=== PATIENT | male | born 1950 | race Caucasian/White ===

== ENCOUNTER → 2023-11-28 14:25 | Outpatient (REF) | payer MEDICARE, SELFPAY ==
[2023-11-28 14:37] LABS: % Basophils 0.4 % (0-2); % Eosinophils 4.9 % (0-6); % Immature Granulocytes 0.8 % (0-0.5); % Lymphocytes 38.5 % (20.5-51.1); % Monocytes 7.5 % (1.7-9.3); % Neutrophils 47.9 % (42.2-75.2); Absolute Basophils 0.1 10^3/uL (0-0.2); Absolute Eosinophils 0.6 10^3/uL (0-0.7); Absolute Immature Granulocytes 0.1 10^3/uL (0-0.05); Absolute Lymphocytes 4.7 10^3/uL (1.2-3.4); Absolute Monocytes 0.9 10^3/uL (0.1-0.6); Absolute Neutrophils 5.8 10^3/uL (1.4-6.5); Hematocrit 35.3 % (39.0-52.0); Hemoglobin 11.9 g/dL (13.0-18.0); Mean Corp Hgb Conc. 33.7 g/dL (33.0-37.0); Mean Corpuscular Hgb 30.6 pg (27.0-31.0); Mean Corpuscular Volume 90.7 fL (80.0-94.0); Mean Platelet Volume 8.7 fL (7.4-10.4); Platelet Count 462 10^3/uL (130-400); Red Blood Cell Count 3.89 10^6/uL (4.70-6.10); Red Cell Dist. Width 12.8 % (11.5-14.5); White Blood Cell Count 12.1 10^3/uL (4.8-10.8)
[2023-11-28 15:26] LABS: ALT (SGPT) 40 U/L (0-50); AST (SGOT) 24 U/L (17-59); Alkaline Phosphatase 153 U/L (38-126); Blood Urea Nitrogen 37 mg/dl (9-20); Calcium 9.3 mg/dl (8.4-10.2); Carbon Dioxide 20 mmol/L (22-30); Chloride 105 mmol/L (98-107); Glucose 95 mg/dl (70-99); Potassium 4.6 mmol/L (3.5-5.1); Sodium 134 mmol/L (135-145); Total Bilirubin 0.4 mg/dl (0.2-1.3); Total Protein 6.8 g/dl (6.3-8.2); eGFR 34.59
[2023-11-28 15:56] LABS: CEA 1.18 ng/ml
[2023-11-28 15:58] LABS: PSA, Total - Diagnostic 0.52 ng/ml (0.0-4.0)
== END ==
LOC: OIDL 14:25
PROVIDERS: ATTENDING PHYSICIAN Internal Medicine Hematology & Oncology
DX: C18.7 Malignant neoplasm of sigmoid colon (principal); R91.1 Solitary pulmonary nodule; N17.9 Acute kidney failure, unspecified; C79.51 Secondary malignant neoplasm of bone
CPT/HCPCS: 80053; 82378; 84153; 85025

== ENCOUNTER → 2023-12-17 14:41 | Outpatient (REF) | payer MEDICARE, SELFPAY ==
[2023-12-17 14:59] LABS: % Basophils 0.5 % (0-2); % Eosinophils 5.6 % (0-6); % Immature Granulocytes 0.3 % (0-0.5); % Monocytes 6.4 % (1.7-9.3); % Neutrophils 53.2 % (42.2-75.2); Absolute Basophils 0.1 10^3/uL (0-0.2); Absolute Eosinophils 0.7 10^3/uL (0-0.7); Absolute Lymphocytes 4.2 10^3/uL (1.2-3.4); Absolute Monocytes 0.8 10^3/uL (0.1-0.6); Absolute Neutrophils 6.5 10^3/uL (1.4-6.5); Hematocrit 32.7 % (39.0-52.0); Hemoglobin 11.3 g/dL (13.0-18.0); Mean Corp Hgb Conc. 34.6 g/dL (33.0-37.0); Mean Corpuscular Hgb 30.1 pg (27.0-31.0); Mean Corpuscular Volume 87.2 fL (80.0-94.0); Mean Platelet Volume 9.4 fL (7.4-10.4); Nucleated Red Blood Cells % 0 % (-); Platelet Count 249 10^3/uL (130-400); Red Blood Cell Count 3.75 10^6/uL (4.70-6.10); Red Cell Dist. Width 13.2 % (11.5-14.5); White Blood Cell Count 12.3 10^3/uL (4.8-10.8)
[2023-12-17 15:12] LABS: ALT (SGPT) 19 U/L (0-50); AST (SGOT) 23 U/L (17-59); Albumin 4.2 g/dl (3.5-5.0); Alkaline Phosphatase 124 U/L (38-126); Blood Urea Nitrogen 39 mg/dl (9-20); Calcium 9.4 mg/dl (8.4-10.2); Carbon Dioxide 19 mmol/L (22-30); Chloride 108 mmol/L (98-107); Glucose 133 mg/dl (70-99); Potassium 3.7 mmol/L (3.5-5.1); Sodium 136 mmol/L (135-145); Total Bilirubin 0.4 mg/dl (0.2-1.3); Total Protein 7.2 g/dl (6.3-8.2); eGFR 20.44
== END ==
LOC: OIDL 14:41
PROVIDERS: ATTENDING PHYSICIAN Internal Medicine Hematology & Oncology
DX: C18.7 Malignant neoplasm of sigmoid colon (principal); C79.51 Secondary malignant neoplasm of bone; C61 Malignant neoplasm of prostate
CPT/HCPCS: 80053; 85025

== ENCOUNTER 2024-01-04 06:23 | Day surgery (SDC) | payer MEDICARE, SELFPAY ==
[2024-01-04] VITALS (7 sets, daily range): BP systolic 120–146; BP diastolic 62–76; BMI 24.0
[2024-01-04 08:37] LABS: INR 1.02; PT 13.2 Sec (11.4-14.6)
[2024-01-04 08:38] LABS: APTT 51.7 Sec (23.4-35.0)
[2024-01-04] MEDS: Pyridium 200 MG PO (10:35)
[2024-01-08 23:36] LABS: Stone Analysis Mass 56 mg
== END 2024-01-04 11:15 | disposition home or self-care (01) ==
LOC: SDS 06:23
PROVIDERS: ATTENDING PHYSICIAN Specialist
DX: N20.2 Calculus of kidney with calculus of ureter (principal); N21.0 Calculus in bladder; C61 Malignant neoplasm of prostate; C18.9 Malignant neoplasm of colon, unspecified
CPT/HCPCS: 52356; 74018; 76000; 82365; 85610; 85730; 93005; C2617

== ENCOUNTER → 2024-02-19 07:41 | Outpatient (REF) | payer MEDICARE, SELFPAY | LOC: RAD 07:41 | PROVIDERS: ATTENDING PHYSICIAN Internal Medicine Hematology & Oncology; FAMILY PHYSICIAN Internal Medicine | DX: C18.7 Malignant neoplasm of sigmoid colon (principal); R91.1 Solitary pulmonary nodule; N17.9 Acute kidney failure, unspecified; C79.51 Secondary malignant neoplasm of bone; C61 Malignant neoplasm of prostate; Z85.46 Personal history of malignant neoplasm of prostate | CPT/HCPCS: 71260; 74177; Q9967 ==

== ENCOUNTER → 2024-02-20 15:55 | Outpatient (REF) | payer MEDICARE, SELFPAY ==
[2024-02-20 12:27] LABS: Hematocrit 30.7 % (39.0-52.0); Hemoglobin 10.6 g/dL (13.0-18.0); Mean Corp Hgb Conc. 34.5 g/dL (33.0-37.0); Mean Corpuscular Hgb 31.6 pg (27.0-31.0); Mean Corpuscular Volume 91.6 fL (80.0-94.0); Mean Platelet Volume 9.8 fL (7.4-10.4); Platelet Count 120 10^3/uL (130-400); Red Blood Cell Count 3.35 10^6/uL (4.70-6.10); Red Cell Dist. Width 15.3 % (11.5-14.5); White Blood Cell Count 15.1 10^3/uL (4.8-10.8)
[2024-02-20 12:46] LABS: ALT (SGPT) 21 U/L (0-50); AST (SGOT) 17 U/L (17-59); Albumin 4.1 g/dl (3.5-5.0); Alkaline Phosphatase 181 U/L (38-126); Blood Urea Nitrogen 40 mg/dl (9-20); Calcium 8.9 mg/dl (8.4-10.2); Carbon Dioxide 20 mmol/L (22-30); Chloride 106 mmol/L (98-107); Glucose 100 mg/dl (70-99); Potassium 3.6 mmol/L (3.5-5.1); Sodium 136 mmol/L (135-145); Total Bilirubin 0.5 mg/dl (0.2-1.3); Total Protein 6.4 g/dl (6.3-8.2); eGFR 34.59
[2024-02-20 13:04] LABS: % Basophils 0.2 % (0-2); % Eosinophils 1.2 % (0-6); % Immature Granulocytes 0.7 % (0-0.5); % Lymphocytes 23.1 % (20.5-51.1); % Monocytes 7.1 % (1.7-9.3); % Neutrophils 67.7 % (42.2-75.2); Absolute Eosinophils 0.2 10^3/uL (0-0.7); Absolute Immature Granulocytes 0.1 10^3/uL (0-0.05); Absolute Lymphocytes 3.5 10^3/uL (1.2-3.4); Absolute Monocytes 1.1 10^3/uL (0.1-0.6); Absolute Neutrophils 10.3 10^3/uL (1.4-6.5); Nucleated Red Blood Cells % 0 % (-)
[2024-02-20 13:11] LABS: PSA, Total - Diagnostic 0.28 ng/ml (0.0-4.0)
== END ==
LOC: OIDL 15:55
PROVIDERS: ATTENDING PHYSICIAN Internal Medicine Hematology & Oncology
DX: C18.7 Malignant neoplasm of sigmoid colon (principal); C79.51 Secondary malignant neoplasm of bone
CPT/HCPCS: 80053; 84153; 85025

== ENCOUNTER → 2024-02-29 15:44 | Outpatient (REF) | payer MEDICARE, SELFPAY ==
[2024-02-29 18:08] LABS: ALT (SGPT) 28 U/L (0-50); AST (SGOT) 24 U/L (17-59); Albumin 3.5 g/dl (3.5-5.0); Alkaline Phosphatase 119 U/L (38-126); Blood Urea Nitrogen 66 mg/dl (9-20); Calcium 7.3 mg/dl (8.4-10.2); Carbon Dioxide 20 mmol/L (22-30); Chloride 104 mmol/L (98-107); Glucose 139 mg/dl (70-99); Potassium 2.9 mmol/L (3.5-5.1); Sodium 135 mmol/L (135-145); Total Bilirubin 0.3 mg/dl (0.2-1.3); Total Protein 5.6 g/dl (6.3-8.2); eGFR 27.79
== END ==
LOC: OIDL 15:44
PROVIDERS: ATTENDING PHYSICIAN Internal Medicine Hematology & Oncology
DX: C18.7 Malignant neoplasm of sigmoid colon (principal)
CPT/HCPCS: 80053

== ENCOUNTER → 2024-03-21 15:49 | Outpatient (REF) | payer MEDICARE, SELFPAY ==
[2024-03-21 16:47] LABS: ALT (SGPT) 64 U/L (0-50); AST (SGOT) 34 U/L (17-59); Albumin 4.3 g/dl (3.5-5.0); Alkaline Phosphatase 152 U/L (38-126); Blood Urea Nitrogen 80 mg/dl (9-20); Calcium 8.3 mg/dl (8.4-10.2); Carbon Dioxide 21 mmol/L (22-30); Chloride 90 mmol/L (98-107); Glucose 153 mg/dl (70-99); Iron 137 ug/dl (49-181); Potassium 4.3 mmol/L (3.5-5.1); Sodium 127 mmol/L (135-145); Total Bilirubin 0.7 mg/dl (0.2-1.3); Total Protein 6.4 g/dl (6.3-8.2); eGFR 20.44
[2024-03-21 16:56] LABS: Percent Saturation 35 % (20-50); Total Iron Binding Capacity 383 ug/dl (261-462)
[2024-03-21 17:54] LABS: Folate > 20.0 ng/ml (2.76-20); Vitamin B12 > 1000 pg/ml (239-931)
== END ==
LOC: OIDL 15:49
PROVIDERS: ATTENDING PHYSICIAN Internal Medicine Hematology & Oncology
DX: C18.7 Malignant neoplasm of sigmoid colon (principal); D51.9 Vitamin B12 deficiency anemia, unspecified
CPT/HCPCS: 80053; 82607; 82728; 82746; 83540; 83550

== ENCOUNTER 2024-03-24 19:55 | Inpatient (IN) | payer MEDICARE, SELFPAY ==
[2024-03-24] VITALS (8 sets, daily range): BP systolic 61–158; BP diastolic 40–72; PULSE 102–128; BMI 24.0; BMI 22.2
--- NOTE | 2024-03-24 17:45 | ED.GENMED ---
History of Present Illness
General
Chief Complaint: Dehydration Symptoms
Source: patient and spouse
Exam Limitations: none
Time Seen by Provider: 03/24/24 17:28
Nursing documentation reviewed up to this point in time: agreed with
Travel History
Have you had any contact with someone who has COVID-19?: No
Do you have any symptoms of coronavirus? Fever > 100 degrees, chills, cough, shortness of breath, sore throat, loss of taste or smell, muscle aches, or headache?: No
History of Present Illness
History of Present Illness:
73-year-old male with a past medical history of congestive heart failure, chronic kidney disease, colon cancer status post colectomy with ileostomy (currently on chemotherapy) who presents to the emergency room with his for evaluation of severe
fatigue and generalized weakness. Patient reports this been an ongoing issue in the setting of his chemotherapy; he recently had his fifth round of chemotherapy 2 weeks ago and is scheduled to have his last round this coming Sunday. He follows
with [facility] sees Dr. Berry primarily. He says that they have been giving him outpatient IV fluids twice a week with the chemotherapy to help with his weakness and dehydration. He says that over the past few days to a week despite
outpatient IV fluids he has been increasingly weak. His says that he had 2 syncopal episodes with positional change while trying to transport to and from the hospital for infusions. Symptoms discussed with oncology team who referred to the
emergency room to be assessed. Patient denies any chest pain. Denies any palpitations. Denies any shortness of breath. He does report a reasonable appetite and says that she has been making an effort to have him eat plenty of food. He says
he has been drinking fluids at home�reports that he tries to take at least 50 ounces of Gatorade a day. He does report primarily liquid copious output from ileostomy. No nausea or vomiting. Denies any fever or chills. No other complaints.
Past History
Past History
ED Past Medical History: Other (glaucoma)
Social History
Tobacco: Non-smoker
Alcohol: None
Drug: None
Personal: Single
Living: other (so)
Review of Systems
Review of Systems
All Other Systems: ROS reviewed and negative except as documented in HPI and ROS
Constitutional: Reports fatigue; Denies fever or chills
EENT: Denies sore throat or runny nose
Respiratory: Denies cough or trouble breathing
Cardiac: Reports syncope; Denies chest pain, diaphoresis or palpitations
ABD/GI: Denies abdominal pain or nausea
: Denies flank pain
Musculoskeletal: Denies neck pain or back pain
Neurological: Reports weakness (Generalized); Denies headache
Phy Exam
Physical Exam
Physical Exam:
General: Awake, alert, oriented x3; no acute distress
Head: Normocephalic, atraumatic
Eyes: Conjunctiva normal
Throat: Airway intact, dry mucous membranes
Neck: Trachea midline, supple without meningismus
Lungs: Clear to auscultation bilaterally, no wheezing, rales, rhonchi
Heart: Regular rate and rhythm, no murmurs, gallops, or rubs; right chest wall port
Abd: Soft, non distended, nontender, ileostomy in place with green liquid output in bag
Neuro: Cranial nerves grossly intact, speech fluid
Skin: Dry, no rash
Extremities: No edema in extremities, equal pulses in all extremities
Scores
Heart Failure Risk
Heart Failure Risk Score: Not Applicable
Heart Score for Chest Pain Patients
STEMI patient?: Not applicable
Withdrawal Assessment of Alcohol
Withdrawal Assessment Completed?: Not applicable
Course
Orders/Labs/Results
Orders:
Orders
03/24/24 17:44
0.9% Sodium Chloride 1000 ml [Nss] 1,000 ml IV BOLUS
03/24/24 17:48
Complete Blood Count/With Diff Urgent
Comprehensive Metabolic Panel Urgent
Magnesium Urgent
03/24/24 17:50
Electrocardiogram (*1) Urgent
Reason for Study: Fatigue / Weakness
EKG- Treatment ONCE
03/24/24 18:15
Magnesium Sulfate 4 Gram/100Ml [Magnesium Sulfate] 4 gram in 100 ml IV NOW
Potassium Chloride [KCl] 40 meq PO NOW STA
Abnormal Lab Results
03/24/24
17:48
RBC 2.95 L 10^6/uL
(4.70-6.10)
Hgb 9.6 L g/dL
(13.0-18.0)
Hct 26.1 L %
(39.0-52.0)
MCH 32.5 H pg
(27.0-31.0)
RDW 15.2 H %
(11.5-14.5)
Sodium 126 L mmol/L
(135-145)
Potassium 3.1 L mmol/L
(3.5-5.1)
Chloride 93 L mmol/L
(98-107)
Carbon Dioxide 19 L mmol/L
(22-30)
BUN 64 H mg/dl
(9-20)
Creatinine 3.2 H mg/dL
(0.7-1.3)
Glucose 163 H mg/dl
(70-99)
Calcium 7.7 L mg/dl
(8.4-10.2)
Magnesium 1.5 L mg/dl
(1.6-2.3)
AST 66 H U/L
(17-59)
Total Protein 5.4 L g/dl
(6.3-8.2)
Albumin 3.4 L g/dl
(3.5-5.0)
03/24/24 17:48
03/24/24 17:48
Vital Signs
Initial and Last Documented VS:
Initial Vital Signs
Temp Pulse Resp BP Pulse Ox
36.7 C 121 18 100/58 96
03/24/24 16:44 03/24/24 16:44 03/24/24 16:44 03/24/24 16:44 03/24/24 16:44
Last Documented Vital Signs
Temp Pulse Resp BP Pulse Ox
36.7 C 121 18 100/58 96
03/24/24 16:44 03/24/24 16:44 03/24/24 16:44 03/24/24 16:44 03/24/24 16:44
MDM/Problems Addressed
Differential Diagnosis Includes:
Anemia, dehydration, electrolyte derangement,, chemotherapy side effect, infection
MDM/Problems Addressed:
73-year-old male presents for evaluation of generalized weakness and severe fatigue in the setting of recent chemotherapy treatments for colon cancer. Has been receiving outpatient IV fluid infusions but still very weak. Has had a few episodes of
positional syncope over the past few days and he is concerned that he is still dehydrated despite IV fluids. He is tachycardic, rest of vitals normal. Physical exam as above. Plan to place an IV check labs including a CBC and a CMP, mag. Will
check an EKG. Will provide IV fluids. Will reassess at the above.
Labs reviewed: CBC shows anemia at 9.6 which is decreased from baseline around 11. No bleeding through his ostomy. His CMP shows hyponatremia to 126, hypokalemia to 3.1, acute kidney injury with a creatinine of 3.2 from baseline of 2.4, low
magnesium with a mag of 1.5. Suspect dehydration or electrolyte derangements contributing to his severe fatigue and generalized weakness. Provided IV fluids, will give IV magnesium, potassium as well. Will admit for continued management. Case
discussed with hospitalist.
Chronic conditions affecting care:
Colon cancer
*Pulse Oximetry
Patient hypoxic: no
*Critical Care Note
Total Time (30-74mins, 75-104mins- exclusive of procedures): Not Applicable
Data Reviewed
Review of Other/Old Records Reveals: Labs and Records
Source: patient, records and spouse
Patient Management
Discussion with other providers: Hospitalist (Discussed with hospitalist)
Escalation/DeEscalation of care consider admission/obs:
Admission indicated
ED Attending Note
-
Portions of this chart may have been created with voice recognition software.� Occasional wrong word or��sound alike� substitutions may have occurred due to the inherent limitations of voice recognition software.
Discharge Plan
Departure
Patient Disposition: Admit
Date of Disposition: 03/24/24
Time of Disposition: 18:24
Admit to doctor: Toya
Presentation/result/management discussed w/ accepting MD/DO: Hospitalist
Discharge Problem:
CHANTAL (acute kidney injury), Acute dehydration, Acute hyponatremia, Acute hypokalemia, Low magnesium level
Prescriptions:
No Action
Lumigan 1 DROP drops
1 drp BOTH EYES HS
bicalutamide 50 mg Tablet
50 mg PO DAILY
Lupron
1 dose IM Q3M
Referrals:
NONE,* [Family Provider] -
Interventions
Interventions:
ED- Fall Risk Assessment Last Done: 03/24/24 17:25
*ED COVID-19 Vaccine History Last Done: 03/24/24 16:44
ED- Cardiac Assessment Last Done: 03/24/24 17:25
ED- Neurological Assessment Last Done: 03/24/24 17:25
ED- Pulmonary Assessment Last Done: 03/24/24 17:25
Discharge Date and Time
Print Language: CHINESE
[2024-03-24] MEDS: NSS 1000 IV ×2 (17:50→21:03)
[2024-03-24 17:58] LABS: % Basophils 0.8 % (0-2); % Eosinophils 0.4 % (0-6); % Immature Granulocytes 6.2 % (0-0.5); % Lymphocytes 48.9 % (20.5-51.1); % Monocytes 13.2 % (1.7-9.3); % Neutrophils 30.5 % (42.2-75.2); Absolute Basophils 0.1 10^3/uL (0-0.2); Absolute Immature Granulocytes 0.6 10^3/uL (0-0.05); Absolute Lymphocytes 4.5 10^3/uL (1.2-3.4); Absolute Monocytes 1.2 10^3/uL (0.1-0.6); Absolute Neutrophils 2.8 10^3/uL (1.4-6.5); Hematocrit 26.1 % (39.0-52.0); Hemoglobin 9.6 g/dL (13.0-18.0); Mean Corp Hgb Conc. 36.8 g/dL (33.0-37.0); Mean Corpuscular Hgb 32.5 pg (27.0-31.0); Mean Corpuscular Volume 88.5 fL (80.0-94.0); Mean Platelet Volume 10.1 fL (7.4-10.4); Nucleated Red Blood Cells % 0.4 % (-); Platelet Count 133 10^3/uL (130-400); Red Blood Cell Count 2.95 10^6/uL (4.70-6.10); Red Cell Dist. Width 15.2 % (11.5-14.5); White Blood Cell Count 9.2 10^3/uL (4.8-10.8)
[2024-03-24 18:11] LABS: AST (SGOT) 66 U/L (17-59); Albumin 3.4 g/dl (3.5-5.0); Alkaline Phosphatase 111 U/L (38-126); Blood Urea Nitrogen 64 mg/dl (9-20); Calcium 7.7 mg/dl (8.4-10.2); Carbon Dioxide 19 mmol/L (22-30); Chloride 93 mmol/L (98-107); Glucose 163 mg/dl (70-99); Magnesium 1.5 mg/dl (1.6-2.3); Potassium 3.1 mmol/L (3.5-5.1); Sodium 126 mmol/L (135-145); Total Bilirubin 0.4 mg/dl (0.2-1.3); Total Protein 5.4 g/dl (6.3-8.2); eGFR 19.68
[2024-03-24 18:25] LABS: ALT (SGPT) 122 U/L (0-50)
[2024-03-24] MEDS: MAGNESIUM SULFATE 100 IV (18:47)
[2024-03-24] MEDS: KCL 40 MEQ PO (18:47)
--- NOTE | 2024-03-24 18:55 | HPS.HSE ---
Family Physician
-
Family Physician: * NONE
Chief Complaint
-
Fatigue, weakness, hypotension, syncope
History of Present Illness
73-year-old male complaining of fatigue with generalized weakness. His reported 2 syncopal episodes with positional change trend transfer to and from hospital for infusions on Sunday and today. He went to the outpatient cancer center today
for IV fluids received 1 L bolus at 1 PM. He reports going home and was called by cancer center to come to ER for electrolyte abnormalities. He is on current chemotherapy for prostate cancer to pelvis and had his fifth around 12 days ago and is
scheduled for next chemo on Sunday. He reports after chemo he typically gets watery stool in his ostomy. He states he is been drinking approximate 60 ounces a day of water and/or Gatorade but still having received fluid in the office twice a
week due to weakness and dehydration. He states increased watery diarrhea over the past 1 to 2 days. He follows with [facility] Dr. Berry. Other past medical history includes CKD 3B/4A, CHF, glaucoma, colon cancer with ileostomy 2021
complicated with sepsis and cardiomyopathy resolved, prostate cancer and pelvic bones July 2023 on current chemotherapy.
Medical History
Past Medical History
Past Medical History: Reports Other
Additional Past Medical History:
colon CA on current chemotherapy
Prostate CA
CKD 3B/4A
CHF
glaucoma
V. tach
Takotsubo syndrome 2021 post colon resection/sepsis
Hearing aids
Past Surgical History: Reports Other
Additional Past Surgical History:
Tonsillectomy
Subtotal colectomy with end ileostomy 02/12/2022
Colon resection in July 2023
Right upper chest subcu port
Social History
Tobacco: Non-smoker
Alcohol: None
Drug: None
Personal:
Living: With Family ()
Employment: Retired
Family History
Family History: Other (Mother lung cancer, father fall off ladder, sister ruptured AAA)
Allergies / Home Medications
Allergies reflects when Allergies were last updated in [employer].
Home Medications with original date entered in [employer]
Allergy/Medication List:
Allergies
Allergy/AdvReac Type Severity Reaction Status Date / Time
No Known Allergies Allergy Verified 03/24/24 16:49
Home Medications
bimatoprost 0.01 % eye drops (Lumigan) 1 drp BOTH EYES QPM Eye condition 04/06/22
bicalutamide 50 mg tablet 50 mg PO QPM 03/15/23
loperamide 2 mg capsule 2 mg PO Q4H PRN loose stool 03/24/24
ondansetron HCl 8 mg tablet 8 mg PO Q8H PRN nausea/vomiting 03/24/24
potassium citrate 15 mEq (1,620 mg) tablet,extended release 15 meq PO BID 03/24/24
prochlorperazine maleate 10 mg tablet 10 mg PO Q6H PRN nausea/vomiting 03/24/24
Review of Systems
-
History Source: Patient
A 12 point ROS was completed and negative except as noted: Yes
Constitutional: Reports Fatigue and Other (Syncope); Denies Fever or Chills
EENT: Denies Sore Throat or Runny Nose
Respiratory: Denies Cough or Trouble Breathing
Cardiac: Denies Chest Pain, Diaphoresis, Palpitations or Syncope
Abdomen/GI: Reports Diarrhea (Watery green liquid stool in ostomy bag); Denies Abdominal Pain, Nausea, Vomiting, Constipated, Bloody Stools or Black Stools
: Denies Dysuria, Frequency, Flank Pain, Incontinence or Difficulty Voiding
Musculoskeletal: Denies Joint Pain or Edema
Skin: Denies Itching or Rash
Neurological: Reports Dizzy; Denies Headache or Weakness
Endocrine: Reports No Symptoms
Hematologic/Lymphatic: Reports No Symptoms
Psych: Reports Calm
Physical Exam
Vital Signs
Vital Signs
Temp Pulse Resp BP Pulse Ox
98.0 F 121 18 100/58 96
03/24/24 16:44 03/24/24 16:44 03/24/24 16:44 03/24/24 16:44 03/24/24 16:44
Physical Exam
General: Comfortable and Conversant; No Pain, Fever or Chills
HEENT: NormoCephalic, Anicteric, PERRLA, [place] Conjunctivae and No Ptosis
Respiratory: Clear; No Wheezes, Rales or Rhonchi
Cardiac: S1/S2 and Regular Rhythm; No Murmur, Rub, Gallop or Peripheral Edema
Breast: Deferred by me
GI: Soft, Non Tender, Non Distended, Normal Bowel Sounds and Other (Ileostomy watery green output)
Rectal: Deferred by Provider
Genito-urinary: Deferred by me
Musculoskeletal: No Clubbing, No Cyanosis and No Edema
Skin: Warm and Dry; No Rash or Jaundice
Neuro: AO x 3, No Motor Deficits, Nonfocal/grossly intact, Cranial Nerves Intact and Other (Chronic SOBOBA); No Slurred Speech, Facial Droop or Tremors
Psych: Calm
Laboratory Results
-
03/24/24 17:48
03/24/24 17:48
Laboratory Results
Total Bilirubin 0.4 mg/dl (0.2-1.3) 03/24/24 17:48
AST 66 U/L (17-59) H 03/24/24 17:48
ALT 122 U/L (0-50) H 03/24/24 17:48
Alkaline Phosphatase 111 U/L (38-126) 03/24/24 17:48
Impression/Plan
-
Impression/plan:
Admit to telemetry
# Acute hypotension secondary to CHANTAL/volume depletion from chemotherapy
#Hx volume depletion with chemotherapy has been getting IV NSS twice a week as outpatient
#Hx syncope Sunday and today secondary hypertension
BP 100/58
-Received 1 L bolus as outpatient at 1 PM
-Continue IV NSS 80 cc an hour
#CHANTAL on CKD 3B�4A
Creat 3.2/bun 64> baseline 2.4
-IV NSS bolus
-IV NSS 80 cc an hour
-Follow BMP
#Acute hypokalemia
K3.1 will give KCl 40 mEq
EKG NSR 93 bpm, QTc 467 MS
#Hypomagnesemia
Mag 1.5 will give 2 g rider
#Acute hyponatremia�euvolemic
NA 126 will check TSH with free T4, urine NA, urine Osmo, serum Osmo
IV NSS
#Hypocalcemia
-Corrected calcium 8.2
-Calcium gluconate
Follow calcium
#Prostate cancer on current chemotherapy
Had history of pelvic mets July 2023 recent PET scan he reports was negative
-Continue bicalutamide 50 mg every afternoon
-Follows with [facility]
#Transaminitis likely reactive
Follow CMP
#Colon CA status post colectomy with ileostomy prior chemo November 2022
-History of sepsis 2021 with cardiomyopathy
#Glaucoma Hx-continue Lumigan eyedrops
DVT prophylaxis
Subcu heparin
Full code
--- NOTE | 2024-03-24 19:37 | W.PN.UPDATE ---
Update Note
Progress Note Update
This is an addendum to the H&P written by JAMIL Arteaga on 03/24/2024. Patient seen and examined independently with CLINICAL COUNSELOR.
73-year-old male past medical history of colon cancer of sigmoid colon status post subtotal colectomy with ileostomy, Takotsubo cardiomyopathy, chronic HFrEF, nonsustained ventricular tachycardia, mild aortic regurgitation, presenting for high
output watery output from ileostomy after chemotherapy 12 days ago. Labs show hyponatremia, hypokalemia, hypomagnesemia, hypocalcemia stable transaminitis.
IV fluids. Replete magnesium, potassium, calcium. Patient scheduled for next chemotherapy session 2 days which will likely need to be postponed.
[2024-03-24] MEDS: CALCIUM GLUCONATE 1000 MG IV (20:14)
--- NOTE | 2024-03-24 22:33 | PTCARENOTE ---
Pt admitted from ED to room 2135, Mag sulfate infusing via RCW port, NSS @ 80 started. AAO x3, very [place], FRANCO were sent home with as per pt. Oriented to room and call light, educated multiple times on safety and use of call light prior to
ambulation, pt verbalizes understanding.
[2024-03-24] MEDS: HEPARIN 5000 UNITS SC (22:52)
[2024-03-25] VITALS (8 sets, daily range): BP systolic 58–115; BP diastolic 39–71; PULSE 102–123; O2SAT 99; BMI 22.2
[2024-03-25] MEDS: IMODIUM 2 MG PO (05:26)
[2024-03-25 06:48] LABS: % Basophils 0.2 % (0-2); % Eosinophils 0.9 % (0-6); % Immature Granulocytes 8.4 % (0-0.5); % Lymphocytes 49.1 % (20.5-51.1); % Monocytes 9.8 % (1.7-9.3); % Neutrophils 31.6 % (42.2-75.2); Absolute Eosinophils 0.1 10^3/uL (0-0.7); Absolute Immature Granulocytes 1.2 10^3/uL (0-0.05); Absolute Lymphocytes 6.9 10^3/uL (1.2-3.4); Absolute Monocytes 1.4 10^3/uL (0.1-0.6); Absolute Neutrophils 4.4 10^3/uL (1.4-6.5); Hematocrit 26.4 % (39.0-52.0); Hemoglobin 9.5 g/dL (13.0-18.0); Mean Corpuscular Hgb 32.2 pg (27.0-31.0); Mean Corpuscular Volume 89.5 fL (80.0-94.0); Mean Platelet Volume 9.9 fL (7.4-10.4); Nucleated Red Blood Cells % 0.4 % (-); Platelet Count 140 10^3/uL (130-400); Red Blood Cell Count 2.95 10^6/uL (4.70-6.10); Red Cell Dist. Width 15.2 % (11.5-14.5)
[2024-03-25 06:59] LABS: ALT (SGPT) 127 U/L (0-50); AST (SGOT) 58 U/L (17-59); Albumin 3.4 g/dl (3.5-5.0); Alkaline Phosphatase 123 U/L (38-126); Blood Urea Nitrogen 58 mg/dl (9-20); Calcium 8.2 mg/dl (8.4-10.2); Carbon Dioxide 23 mmol/L (22-30); Chloride 93 mmol/L (98-107); Estimated Creatinine Clearance 20 ml/min; Glucose 123 mg/dl (70-99); Sodium 127 mmol/L (135-145); Total Bilirubin 0.4 mg/dl (0.2-1.3); Total Protein 5.4 g/dl (6.3-8.2); eGFR 19.68
[2024-03-25] MEDS: NSS 1000 IV (07:52)
[2024-03-25] MEDS: KCL 40 MEQ PO (07:52)
[2024-03-25 08:38] LABS: Osmolality Serum 281 mOsm/kg (275-300)
[2024-03-25 08:59] LABS: Magnesium 2.9 mg/dl (1.6-2.3)
--- NOTE | 2024-03-25 10:48 | W.CON.NEPH ---
Consultation
-
Date/Time Consultation Requested: 03/25/2024 7:12AM
Date/Time Consultation Performed: 03/25/2024 10:50AM
Requesting Provider: Silvio Pittman
Performing Provider: Rita Cancino
Reason for Consultation: CHANTAL, hypocalcemia, hypoMg, hypoK
Medical History
-
Chief Complaint: CHANTAL, hypocalcemia, hypoMg, hypoK
History of Present Illness:
Mr. Carter is a 73 YOM with PMH of colon cancer on current chemotherapy, prostate cancer, CKD stage IIIb/IV, CHF, V. tach, Takotsubo who presents to the hospital for generalized weakness. He states that he received 5 cycles of chemotherapy and over
the last 2 weeks he has been feeling very weak. He has noticed that he has been changing his ostomy bag more than usual and it is typically very liquidy stools that he is seeing. He was told by his doctor that his numbers were off and did go into
get fluid resuscitation. He follows with [facility] and his oncologist is Dr. Berry.
Regarding his kidney history, he does have a known history of chronic kidney disease. In 2021, he did have a kidney stone which was removed. He states that things have been stable since.
Past Medical History
colon CA on current chemotherapy (s/p cycle 5, next planned for Sunday)
Prostate CA
subtotal colectomy with ileostomy following perforation in February 2022
CKD 3B/4A
CHF
glaucoma
V. tach
Takotsubo syndrome 2021 post colon resection/sepsis (EF 30%)
Hearing aids
Past Surgical History: Other (Tonsillectomy Subtotal colectomy with end ileostomy 02/12/2022 Colon resection in July 2023 Right upper chest subcu port)
Social History
Tobacco: Non-Smoker
Alcohol: None
Drug: None
Personal:
Living: With Family
Employment: Not Employed
Family History
reviewed and not pertientn
Family History: Not Pertinent
Allergies / Home Medications
Allergy/AdvReac Type Severity Reaction Status Date / Time
No Known Allergies Allergy Verified 03/24/24 16:49
�Medication �Instructions �Recorded �Confirmed �Type
bimatoprost 0.01 % eye drops 1 drp BOTH EYES QPM Eye condition 04/06/22 03/24/24 History
(Lumigan)
bicalutamide 50 mg tablet 50 mg PO QPM Cancer 03/15/23 03/24/24 History
loperamide 2 mg capsule 2 mg PO Q4H PRN loose stool 03/24/24 03/24/24 History
ondansetron HCl 8 mg tablet 8 mg PO Q8H PRN nausea/vomiting 03/24/24 03/24/24 History
potassium citrate 15 mEq (1,620 15 meq PO BID RENAL 03/24/24 03/24/24 History
mg) tablet,extended release
prochlorperazine maleate 10 mg 10 mg PO Q6H PRN nausea/vomiting 03/24/24 03/24/24 History
tablet
Review of Systems
-
History Source: Patient
All other systems: Negative unless noted
Constitutional: Weight Loss and Fatigue
Abdomen/GI: Diarrhea
Physical Exam
Vital Signs
Vital Signs
Temp Pulse Resp BP Pulse Ox
97.2 F 96 20 110/67 100
03/25/24 07:58 03/25/24 07:58 03/25/24 07:58 03/25/24 07:58 03/25/24 07:58
Lab Results
WBC 14.0 10^3/uL (4.8-10.8) H 03/25/24 06:25
RBC 2.95 10^6/uL (4.70-6.10) L 03/25/24 06:25
Hgb 9.5 g/dL (13.0-18.0) L 03/25/24 06:25
Hct 26.4 % (39.0-52.0) L 03/25/24 06:25
Plt Count 140 10^3/uL (130-400) 03/25/24 06:25
Sodium 127 mmol/L (135-145) L 03/25/24 06:25
Potassium 3.0 mmol/L (3.5-5.1) L 03/25/24 06:25
Chloride 93 mmol/L (98-107) L 03/25/24 06:25
Carbon Dioxide 23 mmol/L (22-30) 03/25/24 06:25
BUN 58 mg/dl (9-20) H 03/25/24 06:25
Creatinine 3.2 mg/dL (0.7-1.3) H 03/25/24 06:25
eGFR 19.68 03/25/24 06:25
Glucose 123 mg/dl (70-99) H 03/25/24 06:25
Calcium 8.2 mg/dl (8.4-10.2) L 03/25/24 06:25
Albumin 3.4 g/dl (3.5-5.0) L 03/25/24 06:25
Physical Exam
General: AOx3, No Distress and Nontoxic
HEENT: PERRL, EOMI, Anicteric, Conjunctivae Clear, Ear/Nose Intact, Hearing Normal (hearing aids), Oropharynx Clear/Moist, Dentition Intact, Facial Symmetry, Neck Supple, Trachea Midline and No JVD
Respiratory: Clear
Cardiac: S1/S2 and Regular Rate/Rhythm
Breast: N/A
Abdomen: Soft, Nontender, Nondistended and Normal Bowel Sounds
Rectal: Deferred by Provider
Genito-urinary: No Costovertebral Tender
Musculoskeletal: No Clubbing, No Cyanosis and No Edema
Skin: No Rash, Warm, Dry, No Clubbing, No Cyanosis, Normal Turgor and No Bruising
Neuro: Nonfocal/Grossly Intact
Hematologic/Lymphatic: No Cervical Lymphadenopathy
Psych: Mood/afflect pleasant, Insight/judgement good and Appropriate
Data Reviewed
-
CT Scan: Report Reviewed by me (peritoneal nodules smaller, sclerotic lesion in left iliac bone, stones in bladder but no hydro noted)
Assessment/Plan
-
Assessment:
CHANTAL - likely pre-renal
Hyponatremia, hypovolemic presentation
hypokalemia (repletion provided)
hypocalcemia
hypomagnesemia (resolved)
Metabolic acidosis -improving
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
Left renal cyst
urinary bladder stones
Plan:
- initially concerned for a possible fanconi syndrome in the setting of chemotherapy but his picture just appears more consistent with GI losses
- agree with aggressive repletion of mg, K, calcium
- i have ordered phosphorous to ensure it is not low
- regarding hyponatremia --> urine Na if <5, indicative of hypovolemic hyponatremia
- i will plan to provide one time bolus of hypertonic solution which should correct patient to >130 by tomorrow AM
- repletion of K will also assist in hyponatremia
- regarding CHANTAL likely pre-renal leading to ATN, supportive care as above
- please continue to trend all electrolytes
- need to slow down ostomy output, might need to consider scheduled loperamide but will see output over the next 24 hours
[2024-03-25] MEDS: HEPARIN 5000 UNITS SC ×2 (10:56→21:53)
[2024-03-25] MEDS: CALCIUM GLUCONATE 100 IV (11:57)
[2024-03-25 12:07] LABS: Phosphorus 4.9 mg/dl (2.5-4.5)
[2024-03-25 12:08] LABS: Urine Albumin Trace (Neg - Trace); Urine Bilirubin Negative (Negative); Urine Character Clear (Clear); Urine Color Yellow; Urine Glucose Negative (Negative); Urine Ketone Negative (Negative); Urine Leukocyte Negative (Negative); Urine Nitrite Negative (Negative); Urine Occult Blood Negative (Negative); Urine Specific Gravity 1.025 (<1.030); Urine Urobilinogen Negative (Neg - 1+)
[2024-03-25] MEDS: SODIUM CHLORIDE 3% 250 IV (13:13)
--- NOTE | 2024-03-25 13:29 | W.PN.HOSP.TC ---
Today's Communication/Plan
-
Correct electrolytes, supportive care, appreciate nephrology
Assessment / Plan
Assessment / Plan
Physical Exam
General: Not in acute distress. Hard of Hearing.
HEENT: Normocephalic
Respiratory: Clear to Auscultation Bilaterally
Cardiac: S1/S2 and Regular Rhythm
GI: Soft, Non Tender, Non Distended, Normal Bowel Sounds and Other (Ileostomy)
Musculoskeletal: No Cyanosis
Skin: Warm and Dry
Neuro: AAO x 3, Nonfocal/grossly intact
Psych: Calm

Assessment/Plan
73-year-old male past medical history of colon cancer of sigmoid colon status post subtotal colectomy with ileostomy, Takotsubo cardiomyopathy, chronic HFrEF, nonsustained ventricular tachycardia, mild aortic regurgitation, presented for high output
watery output from ileostomy after chemotherapy 12 days ago. Labs showed hyponatremia, hypokalemia, hypomagnesemia, hypocalcemia and transaminitis.
#High output watery output from ileostomy after chemotherapy ~12 days prior to presentation
-May need Imodium, GI consult, will continue to monitor for now
-I's and O's
#Acute hypotension secondary to CHANTAL/volume depletion from chemotherapy
#Hx volume depletion with chemotherapy has been getting IV NSS twice a week as outpatient
#Hx syncope Sunday and today secondary hypertension
-Continue supportive care with IV fluids
#CHATNAL - likely pre-renal - on CKD 3B�4A
-IV fluids
-Nephrology consulted, recommendations appreciated
#Metabolic Acidosis
-Improving
-Continue to monitor
#Acute hypokalemia
-replacement ordered
-Trend/monitor electrolytes
#Hypomagnesemia - RESOLVED
-Replaced
#Hypovolemic Hyponatremia
-Nephrology consulted, recommendations appreciated
-3% saline ordered by Nephrology
#Hypocalcemia
-Monitor corrected calcium
-Calcium gluconate
#Prostate cancer on current chemotherapy
Had history of pelvic mets July 2023 recent PET scan he reports was negative
-Continue bicalutamide 50 mg every afternoon
-Follows with [facility]
#Transaminitis
Follow CMP
#Colon CA status post colectomy with ileostomy prior chemo November 2022
#Subtotal colectomy with ileostomy following bowel perforation February 2022
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
-History of sepsis 2021 with cardiomyopathy
#Left renal cyst
#Urinary bladder stones
#Glaucoma Hx-continue Lumigan eyedrops
DVT prophylaxis
Subcu heparin
Full code
Anticipated Discharge: > 48 hours
Subjective/Interval History
-
Date of Service: March 25, 2024
Patient was seen and examined. He reported feeling okay and denied any new symptoms or complaints.
Objective Data
-
Labs:
Laboratory Results
03/25/24 03/25/24
06:25 19:15
WBC 14.0 H
Hgb 9.5 L
Hct 26.4 L
Plt Count 140
Sodium 127 L Pending
Potassium 3.0 L Pending
Chloride 93 L Pending
Carbon Dioxide 23 Pending
BUN 58 H Pending
Creatinine 3.2 H Pending
Glucose 123 H Pending
Calcium 8.2 L Pending
Total Bilirubin 0.4
AST 58
ALT 127 H
Alkaline Phosphatase 123
Vital Signs:
Vital Signs
Temp Pulse Resp BP Pulse Ox
97.8 F 97 18 106/60 96
03/25/24 11:30 03/25/24 11:30 03/25/24 11:30 03/25/24 11:30 03/25/24 12:47
I&O
03/24/24 03/25/24 03/26/24
06:59 06:59 06:59
Intake Total 1380 / 1380
Output Total 1550 / 1550
Balance -170 / -170
[2024-03-25 13:48] LABS: Osmolality Urine 503 mOsm/kg (300-900)
[2024-03-25 13:49] LABS: Urine Sodium < 5 mmol/L (30-90)
--- NOTE | 2024-03-25 14:59 | CM ---
CM met with pt bedside
Pt resides with his SO/[place] in a 1SH with 2 MINDY
Pt notes independence with his ADls w/o any ADs
He has a WW and SPC for use if needed
Pt has a colostomy since 2021 and care for independently
Pt is followed by [facility] and has received 02/10 chemo
Was planned for last chemo (03/13) tomorrow 03/26, will be delayed until medical improvement per pt
PCP- Lucas Hobson
Rx- [facility]
PT/OT following with recommendations of VN vs no needs
Discussed with pt- he declined VN and noted past hx and did not find to be beneficial
CM discussed possibly outpt- he may be interested
Agreed to follow up closer to dc regarding outpt script
Discharge Disposition- home no needs vs outpt therapy
[2024-03-25] MEDS: LUMIGAN 0.01% 1 DROP BOTH EYES (17:13)
[2024-03-25] MEDS: CASODEX 50 MG PO (17:13)
[2024-03-25 20:31] LABS: Blood Urea Nitrogen 54 mg/dl (9-20); Calcium 8.8 mg/dl (8.4-10.2); Carbon Dioxide 24 mmol/L (22-30); Chloride 91 mmol/L (98-107); Estimated Creatinine Clearance 23 ml/min; Glucose 156 mg/dl (70-99); Potassium 2.9 mmol/L (3.5-5.1); Sodium 129 mmol/L (135-145)
[2024-03-26] VITALS (7 sets, daily range): BP systolic 94–149; BP diastolic 62–111; PULSE 125–140; O2SAT 100; BMI 21.6
--- NOTE | 2024-03-26 04:06 | DOWNTIME ---
There was a [employer] Client Senior [employer] Programmer Downtime on 03/26/2024 from 0100 to 03/26/2024 at 0337. Downtime documentation of patient's care, including medication administrations, has been reconciled in the electronic record per guidelines. Refer to the
patient's paper chart under the miscellaneous tab to see printed paper medication records and downtime forms.
[2024-03-26 05:27] LABS: Hematocrit 29.9 % (39.0-52.0); Hemoglobin 10.3 g/dL (13.0-18.0); Mean Corp Hgb Conc. 34.4 g/dL (33.0-37.0); Mean Corpuscular Hgb 32.5 pg (27.0-31.0); Mean Corpuscular Volume 94.3 fL (80.0-94.0); Mean Platelet Volume 9.7 fL (7.4-10.4); Platelet Count 165 10^3/uL (130-400); Red Blood Cell Count 3.17 10^6/uL (4.70-6.10); Red Cell Dist. Width 15.5 % (11.5-14.5); White Blood Cell Count 23.2 10^3/uL (4.8-10.8)
[2024-03-26 05:55] LABS: ALT (SGPT) 137 U/L (0-50); AST (SGOT) 62 U/L (17-59); Albumin 3.7 g/dl (3.5-5.0); Alkaline Phosphatase 131 U/L (38-126); Blood Urea Nitrogen 50 mg/dl (9-20); Calcium 8.8 mg/dl (8.4-10.2); Carbon Dioxide 25 mmol/L (22-30); Chloride 95 mmol/L (98-107); Estimated Creatinine Clearance 23 ml/min; Glucose 126 mg/dl (70-99); Magnesium 2.6 mg/dl (1.6-2.3); Phosphorus 5.7 mg/dl (2.5-4.5); Potassium 3.1 mmol/L (3.5-5.1); Sodium 132 mmol/L (135-145); Total Bilirubin 0.4 mg/dl (0.2-1.3); Total Protein 5.7 g/dl (6.3-8.2); eGFR 22.15
[2024-03-26 07:23] LABS: Band Neutrophils 14 % (0-3); Lymphocytes 43 % (20-51); Monocytes 2 % (2-9); Segmented Neutrophils 38 % (42-75)
[2024-03-26 07:24] LABS: Metamyelocytes 2 % (-); Myelocytes 1 % (-); Platelets Checked Yes
[2024-03-26 07:25] LABS: Anisocytosis 1+; Normal RBC Morphology No; Ovalocytes FEW; Polychromasia FEW; Total Cells Counted 100
[2024-03-26] MEDS: KCL 40 MEQ PO (08:08)
[2024-03-26] MEDS: IMODIUM 2 MG PO (08:26)
[2024-03-26] MEDS: HEPARIN 5000 UNITS SC ×2 (09:13→21:48)
[2024-03-26] MEDS: NSS 1000 IV ×2 (10:09→21:47)
--- NOTE | 2024-03-26 11:48 | W.PN.NEPH.PH ---
Today's Communication / Plan
-
Maintain electrolyte repletion
Maintain isotonic saline
Assessment/Plan
-
Assessment:
CHANTAL - likely pre-renal
Hyponatremia, hypovolemic presentation
hypokalemia (repletion provided)
hypocalcemia
hypomagnesemia (resolved)
Metabolic acidosis -improving
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
Left renal cyst
urinary bladder stones
Plan:
- initially concerned for a possible fanconi syndrome in the setting of chemotherapy but his picture just appears more consistent with GI losses
- agree with aggressive repletion of mg, K, calcium
- i have ordered phosphorous to ensure it is not low : 5.7
- regarding hyponatremia --> urine Na if <5, indicative of hypovolemic hyponatremia, sodium improving with volume resuscitation
-maintain isotonic salinte
-Creatinine appears to be improving with volume resuscitation
- please continue to trend all electrolytes and replete
-Patient remains hypotensive consistent with volume depletion
-
-
Date of Service: March 26, 2024
CC / HPI / ROS
-
Chief Complaint:
Acute kidney injury
Hyponatremia
Hypokalemia
History of Present Illness:
Sodium up to 132 following hypertonic saline
Remains hemodynamically labile
Creatinine improved to 2.9
Review of Systems:
Nonoliguric
Weights down
No chest pain or shortness of
Labs
-
Labs:
WBC 23.2 10^3/uL (4.8-10.8) H 03/26/24 05:12
RBC 3.17 10^6/uL (4.70-6.10) L 03/26/24 05:12
Hgb 10.3 g/dL (13.0-18.0) L 03/26/24 05:12
Hct 29.9 % (39.0-52.0) L 03/26/24 05:12
Plt Count 165 10^3/uL (130-400) 03/26/24 05:12
Sodium 132 mmol/L (135-145) L 03/26/24 05:12
Potassium 3.1 mmol/L (3.5-5.1) L 03/26/24 05:12
Chloride 95 mmol/L (98-107) L 03/26/24 05:12
Carbon Dioxide 25 mmol/L (22-30) 03/26/24 05:12
BUN 50 mg/dl (9-20) H 03/26/24 05:12
Creatinine 2.9 mg/dL (0.7-1.3) H 03/26/24 05:12
eGFR 22.15 03/26/24 05:12
Glucose 126 mg/dl (70-99) H 03/26/24 05:12
Calcium 8.8 mg/dl (8.4-10.2) 03/26/24 05:12
Phosphorus 5.7 mg/dl (2.5-4.5) H 03/26/24 05:12
Albumin 3.7 g/dl (3.5-5.0) 03/26/24 05:12
Physical Exam
-
Vital Signs:
Vital Signs
Temp Pulse Resp BP Pulse Ox
97.9 F 103 20 96/65 100
03/26/24 11:38 03/26/24 11:38 03/26/24 11:38 03/26/24 11:38 03/26/24 11:38
Cardiovascular:: Irregular rate and rhythm and Regular rate and rhythm
Respiratory:: Bilateral: Coarse
Extremity Edema:: None: Bilateral:
--- NOTE | 2024-03-26 13:31 | W.PN.HOSP.TC ---
Today's Communication/Plan
-
Continue to monitor and aggressively replace electrolytes
Continue isotonic saline given volume losses and hypovolemic hyponatremia
Appreciate Nephrology
Consulted GI, recommendations appreciated
Assessment / Plan
Assessment / Plan
Physical Exam
General: Not in acute distress. Hard of Hearing.
HEENT: Normocephalic
Respiratory: Clear to Auscultation Bilaterally
Cardiac: S1/S2 and Regular Rhythm
GI: Soft, Non Tender, Non Distended, Normal Bowel Sounds and Other (Ileostomy)
Musculoskeletal: No Cyanosis
Skin: Warm and Dry
Neuro: AAO x 3, Nonfocal/grossly intact
Psych: Calm

Assessment/Plan
73-year-old male past medical history of colon cancer of sigmoid colon status post subtotal colectomy with ileostomy, Takotsubo cardiomyopathy, chronic HFrEF, nonsustained ventricular tachycardia, mild aortic regurgitation, presented for high output
watery output from ileostomy after chemotherapy 12 days ago. Labs showed hyponatremia, hypokalemia, hypomagnesemia, hypocalcemia and transaminitis.
#High output watery output from ileostomy after chemotherapy ~12 days prior to presentation
-May need Imodium, GI consulted, will continue to monitor for now
-Stool studies ordered
-I's and O's
-Contiue IV fluids
#Acute hypotension secondary to CHANTAL/volume depletion from chemotherapy
#Hx volume depletion with chemotherapy has been getting IV NSS twice a week as outpatient
#Hx syncope
-Continue supportive care with IV fluids
#CHANTAL - likely pre-renal - on CKD 3B�4A
-Overall Improving
-Continue isotonic saline IV fluids
-Nephrology consulted, recommendations appreciated
#Metabolic Acidosis
-RESOLVED
-Continue to monitor
#Acute hypokalemia
-replacement ordered
-Trend/monitor electrolytes
#Hypomagnesemia - RESOLVED
-Replaced
#Hypovolemic Hyponatremia
-Nephrology consulted, recommendations appreciated
-3% saline ordered by Nephrology
-Continue Isotonic Saline
#Hypocalcemia - RESOLVED
-Monitor corrected calcium
-Calcium gluconate
#Prostate cancer on current chemotherapy
Had history of pelvic mets July 2023 recent PET scan he reports was negative
-Continue bicalutamide 50 mg every afternoon
-Follows with [facility]
#Colon CA status post colectomy with ileostomy prior chemo November 2022
#Subtotal colectomy with ileostomy following bowel perforation February 2022
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
-History of sepsis 2021 with cardiomyopathy
#Transaminitis
Follow CMP
#Left renal cyst
#Urinary bladder stones
#Glaucoma Hx-continue Lumigan eyedrops
DVT prophylaxis
Subcu heparin
Full code
Anticipated Discharge: > 48 hours
Subjective/Interval History
-
Date of Service: March 26, 2024
Patient was seen and examined. He denied any new symptoms, he mentioned the food in the hospital is not great, he has been having continued significant ostomy outputs.
Objective Data
-
Labs:
Laboratory Results
03/26/24
05:12
WBC 23.2 H
Hgb 10.3 L
Hct 29.9 L
Plt Count 165
Sodium 132 L
Potassium 3.1 L
Chloride 95 L
Carbon Dioxide 25
BUN 50 H
Creatinine 2.9 H
Glucose 126 H
Calcium 8.8
Total Bilirubin 0.4
AST 62 H
ALT 137 H
Alkaline Phosphatase 131 H
Vital Signs:
Vital Signs
Temp Pulse Resp BP Pulse Ox
97.9 F 103 20 96/65 100
03/26/24 11:38 03/26/24 11:38 03/26/24 11:38 03/26/24 11:38 03/26/24 12:35
I&O
03/25/24 03/26/24 03/27/24
06:59 06:59 06:59
Intake Total 1380 / 1380 860 / 860
Output Total 1550 / 1550 2800 / 2800
Balance -170 / -170 -194 / -1940
--- NOTE | 2024-03-26 14:35 | CON.GI ---
Addendum entered and electronically signed by Rick Alvarez MD 03/26/24 16:56:
I saw and examined the patient.
The INSTRUMENT ROOM TECHNICIAN or PA's note was reviewed and I agree with the note.
Comment: 73 yo M pmh colon ca with subtotal colectomy with end ileostomy, prostate Ca on bone mets, on chemo here with 2 weeks of diarrhea.
Recommend stool studies.
More likely suspect chemo related but with significant leukocytosis need to r/o infection.
Will change diet as that may increase stool output.
Further recommendations pending stool studies.
Original Note:
Consultation
-
Date/Time Consultation Requested: 03/26/24 1340
Date/Time Consultation Performed: 03/26/24 1430
Requesting Provider: Silvio Pittman MD
Performing Provider: BEVERLEY David, Nichol Alvarez MD
Reason for Consultation: high ostomy output
Medical History
Chief Complaint / HPI
Chief Complaint: high ostomy output
History of Present Illness:
Pt is a 73yo presents with hx colon CA diagnosed after perforated viscus with subtotal colectomy with end ileostomy, prostate CA, CKD, CHF, glaucoma, V tach with admission 03/24 with fatigue and weakness with syncope. . On admission concern for
increase ostomy outputs with electrolyte imbalance with WBC up to 23.2, Na 126, K 3.1, creat 3.2. He is also noted with elevated LFT's with bili 0.4, AST 62, ALT 137, alk phos 131. In reviewing with patient he was diagnosed with sigmoid adeno CA
with tumor penetration full thickness of wall with tumor adherent to TI. margin positive and no tumor seen in nodes. He recall taking oral chemo then was noted with bony mets in 2022 . Path completed and noted prostate related and given Lupron
and bicalutamide. He had further surgery for cancerous nodule in July 2023 and then started chemo with FOLFIRI with 5th cycle 03/12 with GCSF support 03/14. He states he was doing well til about 2 weeks ago. Prior to 2 weeks ago would empty ostomy
about 3 times per day but noted increased ostomy output with increase stools at night. He wag given IVF support but started end of last week with weakness and electrolyte imbalance and present to ER. Last imaging in February with multiple peritoneal
nodules in pelvis decreased in size and dominant node resected with concern for osseous mets. multiple stones in bladder.
At this time pt admits to some wt loss. He has decreased sense of taste and taking soft diet. He denies dysphagia, GERD, nausea, vomiting, abdominal pain, constipation or rectal bleeding.
Past Medical History
Past Medical History: Arrhythmias (V tach), Cancer (colon CA, prostate CA), CHF, Renal Failure (CKD), Valvular Disease and Other (takotsubo cardiomyopathy, )
Past Surgical History: Bowel Resection (subtotal colectomy 02/2022 for perforation with colon CA), Tonsilectomy and Other (chest port )
Social History
Tobacco: Non-Smoker
Alcohol: None
Drug: None
Personal:
Living: With Family
Employment: Retired
Family History
Family History: Other (no family hx colon CA or polyps)
Allergies / Home Medications
Allergy/AdvReac Type Severity Reaction Status Date / Time
No Known Allergies Allergy Verified 03/24/24 16:49
�Medication �Instructions �Recorded
bimatoprost 0.01 % eye drops 1 drp BOTH EYES QPM Eye condition 04/06/22
([facility])
bicalutamide 50 mg tablet 50 mg PO QPM Cancer 03/15/23
loperamide 2 mg capsule 2 mg PO Q4H PRN loose stool 03/24/24
ondansetron HCl 8 mg tablet 8 mg PO Q8H PRN nausea/vomiting 03/24/24
potassium citrate 15 mEq (1,620 15 meq PO BID RENAL 03/24/24
mg) tablet,extended release
prochlorperazine maleate 10 mg 10 mg PO Q6H PRN nausea/vomiting 03/24/24
tablet
Review of Systems
-
History Source: Patient
Constitutional: Reports Weight Loss and Fatigue
EENT: Reports No Symptoms
Respiratory: Reports No Symptoms
Cardiac: Reports No Symptoms
Abdomen/GI: Reports Diarrhea and Other (decrease sense of taste)
: Reports No Symptoms
Musculoskeletal: Reports No Symptoms
Skin: Reports No Symptoms
Neurological: Reports Weakness
Endocrine: Reports No Symptoms
Hematologic/Lymphatic: Reports No Symptoms
Vital Signs
Temp Pulse Resp BP Pulse Ox
97.9 F 103 20 96/65 100
03/26/24 11:38 03/26/24 11:38 03/26/24 11:38 03/26/24 11:38 03/26/24 12:35
Physical Exam
Exam
General: Well Developed, Well Nourished and No Apparent Distress
HEENT: Normocephalic and Anicteric
Respiratory: Clear
Cardiac: Other (tachy)
GI: Soft, Non Tender, Non Distended and Other (ostomy with liquid yellow )
Musculoskeletal: No Clubbing and No Cyanosis
Skin: Warm and Dry
Neuro: Awake, Alert and AO x 3
Psych: Calm
Results
WBC 23.2 10^3/uL (4.8-10.8) H 03/26/24 05:12
Hgb 10.3 g/dL (13.0-18.0) L 03/26/24 05:12
Hct 29.9 % (39.0-52.0) L 03/26/24 05:12
MCV 94.3 fL (80.0-94.0) H 03/26/24 05:12
Plt Count 165 10^3/uL (130-400) 03/26/24 05:12
Absolute Neuts (auto) 4.4 10^3/uL (1.4-6.5) 03/25/24 06:25
Sodium 132 mmol/L (135-145) L 03/26/24 05:12
Potassium 3.1 mmol/L (3.5-5.1) L 03/26/24 05:12
Chloride 95 mmol/L (98-107) L 03/26/24 05:12
Carbon Dioxide 25 mmol/L (22-30) 03/26/24 05:12
BUN 50 mg/dl (9-20) H 03/26/24 05:12
Creatinine 2.9 mg/dL (0.7-1.3) H 03/26/24 05:12
Calcium 8.8 mg/dl (8.4-10.2) 03/26/24 05:12
Total Bilirubin 0.4 mg/dl (0.2-1.3) 03/26/24 05:12
AST 62 U/L (17-59) H 03/26/24 05:12
ALT 137 U/L (0-50) H 03/26/24 05:12
Alkaline Phosphatase 131 U/L (38-126) H 03/26/24 05:12
Diagnostic Image Results:
02/19/24 CT Chest/abd/pel W Iv Cont
1. Multiple peritoneal nodules within the pelvis, overall decreased in size compared to prior CT dated 06/19/2023. Dominant 2.5 cm peritoneal nodule seen on image 53 of the prior study is no longer seen, and appears to have been surgically resected.
2. Sclerotic lesion within the left iliac bone is unchanged compared to prior CT, however new compared to 02/11/2022, concerning for osseous metastasis.
3. Multiple stones within the urinary bladder. No hydronephrosis on the current study.
Assessment / Plan
-
Pt is a 73yo presents with hx colon CA diagnosed after perforated viscus with subtotal colectomy with end ileostomy, prostate CA, CKD, CHF, glaucoma, V tach with admission 03/24 with fatigue and weakness with syncope. . On admission concern for
increase ostomy outputs with electrolyte imbalance with elevated WBC's. He is also noted with elevated LFT's with bili 0.4, AST 62, ALT 137, alk phos 131. In reviewing with patient he was diagnosed with sigmoid adeno CA with tumor penetration
full thickness of wall with tumor adherent to TI. margin positive and no tumor seen in nodes. He recall taking oral chemo then was noted with bony mets in 2022 . Path completed and noted prostate related and given Lupron and bicalutamide. He had
further surgery for cancerous nodule in July 2023 and then started chemo with FOLFIRI with 5th cycle 03/12 with GCSF support 03/14. He states he was doing well til about 2 weeks ago. Prior to 2 weeks ago would empty ostomy about 3 times per day but
noted increased ostomy output with increase stools at night. He wag given IVF support but started end of last week with weakness and electrolyte imbalance and present to ER. Last imaging in February with multiple peritoneal nodules in pelvis decreased
in size and dominant node resected with concern for osseous mets. multiple stones in bladder. No other new medication.
-elevated ostomy output
-leukocytosis
-decreased taste
-electrolyte imbalance
-metastatic colon CA on current chemo - FOLFIRI with 5th cycle 03/12 with GCSF support 03/14
-prostate CA on Bicalutamide
other medical problems;
-CKD
-CHF
-V tach
PLAN:
Etiology of diarrhea related to chemo, infectious with leukocytosis vs other
await stool studies to rule out infectious etiology
currently on Imodium 1 tablet daily t/c increasing if stool cx neg
cont to correct electrolytes
add oral supplement BID
avoid caffeinated products, add low residue, low lactose diet
-
-
Thank you for consultation and allowing me to participate in the patient's care. Please call the action installer GI physician during the after hours with any questions or concerns.
--- NOTE | 2024-03-26 14:40 | CM ---
Reviewed the chart notes. CM continues to be available to patient/family and is monitoring medical plan for needs at discharge.
Plan: Discharge to home when medically stable. PT recommending home PT, but patient declined.
[2024-03-26] MEDS: CASODEX 50 MG PO (17:15)
[2024-03-26] MEDS: LUMIGAN 0.01% 1 DROP BOTH EYES (17:16)
[2024-03-26 20:49] LABS: Blood Urea Nitrogen 45 mg/dl (9-20); Calcium 8.7 mg/dl (8.4-10.2); Carbon Dioxide 25 mmol/L (22-30); Chloride 95 mmol/L (98-107); Estimated Creatinine Clearance 23 ml/min; Glucose 150 mg/dl (70-99); Magnesium 2.4 mg/dl (1.6-2.3); Potassium 3.1 mmol/L (3.5-5.1); Sodium 130 mmol/L (135-145)
[2024-03-27] VITALS (7 sets, daily range): BP systolic 88–114; BP diastolic 62–75; BMI 21.4
[2024-03-27] MEDS: IMODIUM 2 MG PO (06:33)
[2024-03-27 06:37] LABS: Hematocrit 31.8 % (39.0-52.0); Hemoglobin 10.7 g/dL (13.0-18.0); Mean Corp Hgb Conc. 33.6 g/dL (33.0-37.0); Mean Corpuscular Hgb 32.2 pg (27.0-31.0); Mean Corpuscular Volume 95.8 fL (80.0-94.0); Mean Platelet Volume 9.3 fL (7.4-10.4); Platelet Count 195 10^3/uL (130-400); Red Blood Cell Count 3.32 10^6/uL (4.70-6.10); Red Cell Dist. Width 16.2 % (11.5-14.5); White Blood Cell Count 28.4 10^3/uL (4.8-10.8)
[2024-03-27 07:34] LABS: ALT (SGPT) 175 U/L (0-50); AST (SGOT) 89 U/L (17-59); Albumin 3.9 g/dl (3.5-5.0); Alkaline Phosphatase 150 U/L (38-126); Blood Urea Nitrogen 44 mg/dl (9-20); Calcium 9.1 mg/dl (8.4-10.2); Carbon Dioxide 22 mmol/L (22-30); Chloride 94 mmol/L (98-107); Estimated Creatinine Clearance 22 ml/min; Glucose 148 mg/dl (70-99); Magnesium 2.4 mg/dl (1.6-2.3); Phosphorus 4.7 mg/dl (2.5-4.5); Sodium 131 mmol/L (135-145); Total Bilirubin 0.4 mg/dl (0.2-1.3); eGFR 22.15
--- NOTE | 2024-03-27 08:34 | W.PN.GI.CBS2 ---
Addendum entered and electronically signed by Rick Alvarez MD 03/27/24 10:40:
I saw and examined the patient.
The SUSPENSION CORD TIER or PA's note was reviewed and I agree with the note.
Comment: 73 yo M pmh colon ca s/p surgery and prostate ca on chemo with diarrhea.
Suspect diarrhea is due to chemo, stool studies pending.
Leukocytosis - ? related to Neupogen.
Small rise in LFTs will monitor.
Will consult onc.
D/w hospitalist.
Addendum entered and electronically signed by BEVERLEY Blackburn 03/27/24 09:10:
will add consult-- reviewed with Dr. Barbosa from oncology
Addendum entered and electronically signed by BEVERLEY Blackburn 03/27/24 08:59:
pt also with elevated LFT's with some upward trend cont to follow -- CT in February with no liver masses normal contour, GB and bile ducts normal-- t/c US will add hepatitis panel , K remains low cont to replete per medical team
Original Note:
Today's Communication / Plan
-
Etiology of diarrhea related to chemo, infectious with leukocytosis vs other
stool studies with neg giardia/crypto/c-diff moderate WBC's with stool cx pending
some rise in WBC's
currently on Imodium 1 tablet daily t/c increasing if stool cx neg
cont to correct electrolytes
oral supplement BID
avoid caffeinated products, add low residue, low lactose diet
would add oncology to see with rise in WBC's
Assessment / Plan
-
Pt is a 73yo presents with hx colon CA diagnosed after perforated viscus with subtotal colectomy with end ileostomy, prostate CA, CKD, CHF, glaucoma, V tach with admission 03/24 with fatigue and weakness with syncope. . On admission concern for
increase ostomy outputs with electrolyte imbalance with elevated WBC's. He is also noted with elevated LFT's with bili 0.4, AST 62, ALT 137, alk phos 131. In reviewing with patient he was diagnosed with sigmoid adeno CA with tumor penetration
full thickness of wall with tumor adherent to TI. margin positive and no tumor seen in nodes. He recall taking oral chemo then was noted with bony mets in 2022 . Path completed and noted prostate related and given Lupron and bicalutamide. He had
further surgery for cancerous nodule in July 2023 and then started chemo with FOLFIRI with 5th cycle / with GCSF support 03/14. He states he was doing well til about 2 weeks ago. Prior to 2 weeks ago would empty ostomy about 3 times per day but
noted increased ostomy output with increase stools at night. He wag given IVF support but started end of last week with weakness and electrolyte imbalance and present to ER. Last imaging in February with multiple peritoneal nodules in pelvis decreased
in size and dominant node resected with concern for osseous mets. multiple stones in bladder. No other new medication.
-elevated ostomy output
-leukocytosis
-decreased taste with concern for stomatitis
-electrolyte imbalance
-metastatic colon CA on current chemo - FOLFIRI with 5th cycle /5 with GCSF support 03/14
-prostate CA on Bicalutamide
other medical problems;
-CKD
-CHF
-V tach
PLAN:
Etiology of diarrhea related to chemo, infectious with leukocytosis vs other
stool studies with neg giardia/crypto/c-diff moderate WBC's with stool cx pending
some rise in WBC's
currently on Imodium 1 tablet daily t/c increasing if stool cx neg
cont to correct electrolytes
oral supplement BID
avoid caffeinated products, add low residue, low lactose diet
would add oncology to see with rise in WBC's
Subjective
Subjective
Date of Service: March 27, 2024
reviewed with nursing correction to output 1600ml stool overnight but patient feeling like less volume but stool liquid usually 2/3 formed with liquid in typical ostomy bag, no blood on low residue/low lactose diet still with decrease sense of taste
Objective
Data Reviewed
Laboratory Data:
Laboratory Results
03/27/24 06:24
03/27/24 06:24
Laboratory Results
Phosphorus 4.7 mg/dl (2.5-4.5) H 03/27/24 06:24
Magnesium 2.4 mg/dl (1.6-2.3) H 03/27/24 06:24
Total Bilirubin 0.4 mg/dl (0.2-1.3) 03/27/24 06:24
AST 89 U/L (17-59) H 03/27/24 06:24
ALT 175 U/L (0-50) H 03/27/24 06:24
Alkaline Phosphatase 150 U/L (38-126) H 03/27/24 06:24
Vital Signs and I&O:
Vital Signs
Temp Pulse Resp BP Pulse Ox
98.2 F 106 18 88/62 99
03/27/24 07:50 03/27/24 07:50 03/27/24 07:50 03/27/24 07:50 03/27/24 07:50
I&O
03/26/24 03/27/24 03/28/24
06:59 06:59 06:59
Intake Total 860 / 860 2089 / 2089
Output Total 2800 / 2800 4350 / 4350
Balance -1939 / -1939 -2259 / -2259
Physical Exam
Physical Exam
HEENT: Anicteric
Cardiology: Other (tachy)
GI: Soft, Non Tender and Other (yellow liquid in ostomy bag)
Extremities: No Edema
Neuro: Non Focal
[2024-03-27] MEDS: NSS 1000 IV (09:03)
[2024-03-27] MEDS: HEPARIN 5000 UNITS SC ×2 (09:03→21:33)
[2024-03-27 09:04] LABS: Absolute Neutrophils -Man Diff 15.3 10^3/uL (1.4-6.5); Band Neutrophils 14 % (0-3); Lymphocytes 32 % (20-51); Metamyelocytes 7 % (-); Monocytes 7 % (2-9); Platelets Checked Yes; Segmented Neutrophils 40 % (42-75)
[2024-03-27 09:05] LABS: Normal RBC Morphology Yes; Total Cells Counted 100
[2024-03-27] MEDS: KCL 40 MEQ PO (09:57)
--- NOTE | 2024-03-27 11:47 | CON.ONC ---
Impression
Impression
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
Colon carcinoma with pulmonary metastases
Prostate carcinoma
Leukocytosis
Dehydration
Mild stomatitis
Electrolyte abnormality
Plan
Plan
Continue aggressive fluid and electrolyte replacement
Regular Imodium therapy
Leukocytosis secondary to stress and previous growth factor support
Monitor CMP and CBC
Will follow-up
Patient History
History of Present Illness
Jim Carter 73yo presents with hx colon CA diagnosed after perforated viscus with subtotal colectomy with end ileostomy, prostate CA, CKD, CHF, glaucoma, V tach with admission 03/24 with fatigue and weakness with syncope. He has had continued
increased output from his ostomy posttreatment with cycle 5 of FOLFIRI administered 03/12. He also reports a persistent taste disturbance which has decreased his p.o. intake. Last imaging in February with multiple peritoneal nodules in pelvis decreased in
size and dominant node resected with concern for osseous mets. multiple stones in bladder.
At this time pt admits to some wt loss. He has decreased sense of taste and taking soft diet. He denies dysphagia, GERD, nausea, vomiting, abdominal pain, constipation or rectal bleeding.
Past-Medical/Surgical History
Past Medical History
Past Medical History: Arrhythmias (V tach), Cancer (colon CA, prostate CA), CHF, Renal Failure (CKD), Valvular Disease and Other (takotsubo cardiomyopathy, )
Past Surgical History: Bowel Resection (subtotal colectomy 02/2022 for perforation with colon CA), Tonsilectomy and Other (chest port )
Social History
Tobacco: Non-Smoker
Alcohol: None
Drug: None
Personal:
Living: With Family
Employment: Retired
Family History
Family History: Other (no family hx colon CA or polyps)
Patient Medication
�Medication �Instructions �Recorded �Confirmed �Last Taken �Type
bimatoprost 0.01 % eye drops 1 drp BOTH EYES QPM Eye condition 04/06/22 03/24/24 03/23/24 History
(Lumigan)
bicalutamide 50 mg tablet 50 mg PO QPM Cancer 03/15/23 03/24/24 03/23/24 History
loperamide 2 mg capsule 2 mg PO Q4H PRN loose stool 03/24/24 03/24/24 Unknown History
ondansetron HCl 8 mg tablet 8 mg PO Q8H PRN nausea/vomiting 03/24/24 03/24/24 Unknown History
potassium citrate 15 mEq (1,620 15 meq PO BID RENAL 03/24/24 03/24/24 3 Days Ago History
mg) tablet,extended release ~03/21/24
prochlorperazine maleate 10 mg 10 mg PO Q6H PRN nausea/vomiting 03/24/24 03/24/24 Unknown History
tablet
Active Medications
Generic Name Dose Route Start Last Admin
Trade Name Freq PRN Reason Stop Dose Admin
Bicalutamide 50 mg 03/25/24 18:00 03/26/24 17:15
Bicalutamide 50 Mg Tablet PO 04/22/24 17:59 50 mg
QPM ZEKE Administration
Bimatoprost 1 drop 03/25/24 18:00 03/26/24 17:16
Bimatoprost 0.01% Oph Rose (Lumigan) 2.5 Ml Bottle BOTH EYES 04/22/24 17:59 1 drop
QPM ZEKE Administration
Heparin Sodium 5,000 units 03/24/24 22:00 03/27/24 09:03
Heparin 5,000 Units/Ml 1 Ml Vial SC 04/21/24 21:59 5,000 units
Q12H ZEKE Administration
Sodium Chloride 1,000 mls @ 80 mls/hr 03/26/24 13:45 03/27/24 09:03
Nss IV 1,000 mls
.[id number] ZEKE Administration
Loperamide HCl 2 mg 03/24/24 20:34 03/27/24 06:33
Loperamide 2 Mg Capsule PO 04/21/24 20:33 2 mg
Q4HPRN PRN Administration
loose stool
Ondansetron HCl 8 mg 03/24/24 20:51
Ondansetron 4 Mg Tablet PO 04/21/24 20:50
Q8HPRN PRN
nausea/vomiting
Prochlorperazine Maleate 10 mg 03/24/24 20:34
Prochlorperazine 10 Mg Tablet PO 04/21/24 20:33
Q6HPRN PRN
nausea/vomiting
Sodium Chloride 0 flush 03/24/24 21:00
Sodium Chloride 0.9% (Flush) Syringe IV 04/21/24 20:59
PER PROTOCOL ZEKE
Review of Systems
-
12 point review systems as well as additional complaints
Physical Exam
-
PE
General: Well Developed, Well Nourished and No Apparent Distress
HEENT: Normocephalic and Anicteric
Respiratory: Clear
Cardiac: Other (tachy)
GI: Soft, Non Tender, Non Distended and Other (ostomy with liquid yellow )
Musculoskeletal: No Clubbing and No Cyanosis
Skin: Warm and Dry
Neuro: Awake, Alert and AO x 3
Psych: Calm
Labs
Lab Results
WBC 28.4 10^3/uL (4.8-10.8) H 03/27/24 06:24
RBC 3.32 10^6/uL (4.70-6.10) L 03/27/24 06:24
Hgb 10.7 g/dL (13.0-18.0) L 03/27/24 06:24
Hct 31.8 % (39.0-52.0) L 03/27/24 06:24
MCV 95.8 fL (80.0-94.0) H 03/27/24 06:24
MCH 32.2 pg (27.0-31.0) H 03/27/24 06:24
MCHC 33.6 g/dL (33.0-37.0) 03/27/24 06:
RDW 16.2 % (11.5-14.5) H 03/27/24 06:24
Plt Count 195 10^3/uL (130-400) 03/27/24 06:
MPV 9.3 fL (7.4-10.4) 03/27/24 06:24
Abs Immat Gran (auto) 1.2 10^3/uL (0-0.05) H 03/25/24 06:25
Absolute Neuts (auto) 4.4 10^3/uL (1.4-6.5) 03/25/24 06:25
Absolute Lymphs (auto) 6.9 10^3/uL (1.2-3.4) H 03/25/24 06:25
Absolute Monos (auto) 1.4 10^3/uL (0.1-0.6) H 03/25/24 06:25
Absolute Eos (auto) 0.1 10^3/uL (0-0.7) 03/25/24 06:25
Absolute Basos (auto) 0.0 10^3/uL (0-0.2) 03/25/24 06:25
Immature Gran % 8.4 % (0-0.5) H 03/25/24 06:25
Neutrophils % 31.6 % (42.2-75.2) L 03/25/24 06:25
Lymphocytes % 49.1 % (20.5-51.1) 03/25/24 06:25
Monocytes % 9.8 % (1.7-9.3) H 03/25/24 06:25
Eosinophils % 0.9 % (0-6) 03/25/24 06:25
Basophils % 0.2 % (0-2) 03/25/24 06:25
Creatinine 2.9 mg/dL (0.7-1.3) H 03/27/24 06:24
Vital Signs
Vital Signs
Temp Pulse Resp BP Pulse Ox
98.3 F 104 18 99/65 99
03/27/24 11:15 03/27/24 11:15 03/27/24 11:15 03/27/24 11:15 03/27/24 11:15
--- NOTE | 2024-03-27 12:14 | W.PN.NEPH.PH ---
Today's Communication / Plan
-
Maintain IV fluids
Replete potassium
Assessment/Plan
-
Assessment:
CHANTAL - likely pre-renal
Hyponatremia, hypovolemic presentation
hypokalemia (repletion provided)
hypocalcemia
hypomagnesemia (resolved)
Metabolic acidosis -improving
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
Left renal cyst
urinary bladder stones
Plan:
- initially concerned for a possible fanconi syndrome in the setting of chemotherapy but his picture just appears more consistent with GI losses
- agree with aggressive repletion of mg, K, calcium
- regarding hyponatremia --> urine Na if <5, indicative of hypovolemic hyponatremia, sodium improving with volume resuscitation
-Sodium rising with IV fluid
-maintain isotonic salinte
-Creatinine appears to be unchanged
-Patient still with significant stool output
- please continue to trend all electrolytes and replete
-Patient remains hypotensive consistent with volume depletion
-
-
Date of Service: March 27, 2024
CC / HPI / ROS
-
Chief Complaint:
Acute kidney injury
Hyponatremia
Hypokalemia
History of Present Illness:
Sodium up to 131
Remains hemodynamically labile
Creatinine unchanged at 2.9
Review of Systems:
Nonoliguric
Weights down
No chest pain or shortness of breath
Increase ostomy output 3.9 L
Labs
-
Labs:
WBC 28.4 10^3/uL (4.8-10.8) H 03/27/24 06:24
RBC 3.32 10^6/uL (4.70-6.10) L 03/27/24 06:24
Hgb 10.7 g/dL (13.0-18.0) L 03/27/24 06:24
Hct 31.8 % (39.0-52.0) L 03/27/24 06:24
Plt Count 195 10^3/uL (130-400) 03/27/24 06:24
Sodium 131 mmol/L (135-145) L 03/27/24 06:24
Potassium 3.0 mmol/L (3.5-5.1) L 03/27/24 06:24
Chloride 94 mmol/L (98-107) L 03/27/24 06:24
Carbon Dioxide 22 mmol/L (22-30) 03/27/24 06:24
BUN 44 mg/dl (9-20) H 03/27/24 06:24
Creatinine 2.9 mg/dL (0.7-1.3) H 03/27/24 06:24
eGFR 22.15 03/27/24 06:24
Glucose 148 mg/dl (70-99) H 03/27/24 06:24
Calcium 9.1 mg/dl (8.4-10.2) 03/27/24 06:24
Phosphorus 4.7 mg/dl (2.5-4.5) H 03/27/24 06:24
Albumin 3.9 g/dl (3.5-5.0) 03/27/24 06:24
Physical Exam
-
Vital Signs:
Vital Signs
Temp Pulse Resp BP Pulse Ox
98.3 F 104 18 99/65 99
03/27/24 11:15 03/27/24 11:15 03/27/24 11:15 03/27/24 11:15 03/27/24 11:15
Cardiovascular:: Irregular rate and rhythm and Regular rate and rhythm
Respiratory:: Bilateral: Coarse
Extremity Edema:: None: Bilateral:
Other Findings::
Ostomy
[2024-03-27] MEDS: NSS with KCL 20 MEQ 1000 IV ×2 (12:54→21:32)
--- NOTE | 2024-03-27 13:50 | W.PN.HOSP.TC ---
Today's Communication/Plan
-
Correct electrolytes
Diarrhea improving with Imodium and diet
Appreciate nephrology, GI and oncology
Assessment / Plan
Assessment / Plan
Physical Exam
General: Not in acute distress. Hard of Hearing.
HEENT: Normocephalic
Respiratory: Clear to Auscultation Bilaterally
Cardiac: S1/S2 and Regular Rhythm
GI: Soft, Non Tender, Non Distended, Normal Bowel Sounds and Other (Ileostomy)
Musculoskeletal: No Cyanosis
Skin: Warm and Dry
Neuro: AAO x 3, Nonfocal/grossly intact
Psych: Calm

Assessment/Plan
73-year-old male past medical history of colon cancer of sigmoid colon status post subtotal colectomy with ileostomy, Takotsubo cardiomyopathy, chronic HFrEF, nonsustained ventricular tachycardia, mild aortic regurgitation, presented for high output
watery output from ileostomy after chemotherapy 12 days ago. Labs showed hyponatremia, hypokalemia, hypomagnesemia, hypocalcemia and transaminitis.
#High output watery output from ileostomy after chemotherapy ~12 days prior to presentation
#Diarrhea Suspected Related to Chemotherapy
-GI consulted, recommendations appreciated will continue to monitor for now
-Oral supplement BID
-Avoid caffeinated products, continue low residue, low lactose diet
-Stool studies ordered, WBCs moderate, C. diff negative
-Imodium 1 mg daily
-I's and O's
-Continue IV fluids with potassium
#Leukocytosis -- related to Neupogen? - secondary to stress and previous growth factor support
-Oncology consulted, recommendations appreciated
#Acute hypotension secondary to CHANTAL/volume depletion from chemotherapy
#Hx volume depletion with chemotherapy has been getting IV NSS twice a week as outpatient
#Hx syncope
-Continue supportive care with IV fluids
#CHANTAL - likely pre-renal - on CKD 3B�4A
-Overall Improving
-Continue isotonic saline IV fluids
-Nephrology consulted, recommendations appreciated
#Metabolic Acidosis
-RESOLVED
-Continue to monitor
#Acute hypokalemia
-replacement ordered
-Trend/monitor electrolytes
#Hypomagnesemia - RESOLVED
-Replaced
#Hypovolemic Hyponatremia
-Nephrology consulted, recommendations appreciated
-3% saline ordered by Nephrology
-Continue current IV fluids with the potassium
#Hypocalcemia - RESOLVED
-Monitor corrected calcium
-Calcium gluconate
#Prostate cancer on current chemotherapy
Had history of pelvic mets July 2023 recent PET scan he reports was negative
-Continue bicalutamide 50 mg every afternoon
-Follows with [facility]
#Colon CA status post colectomy with ileostomy prior chemo November 2022
#Colon carcinoma with pulmonary metastases
#Subtotal colectomy with ileostomy following bowel perforation February 2022
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
-History of sepsis 2021 with cardiomyopathy
#Transaminitis
-GI consulted as above, recommendations appreciated
#Left renal cyst
#Urinary bladder stones
#Glaucoma Hx-continue Lumigan eyedrops
DVT prophylaxis
Subcu heparin
Full code
Anticipated Discharge: > 48 hours
Subjective/Interval History
-
Date of Service: March 27, 2024
Patient was seen and examined. He reported that his stool ostomy output has decreased.
Objective Data
-
Labs:
Laboratory Results
03/27/24
06:24
WBC 28.4 H
Hgb 10.7 L
Hct 31.8 L
Plt Count 195
Sodium 131 L
Potassium 3.0 L
Chloride 94 L
Carbon Dioxide 22
BUN 44 H
Creatinine 2.9 H
Glucose 148 H
Calcium 9.1
Total Bilirubin 0.4
AST 89 H
ALT 175 H
Alkaline Phosphatase 150 H
Vital Signs:
Vital Signs
Temp Pulse Resp BP Pulse Ox
98.3 F 104 18 99/65 99
03/27/24 11:15 03/27/24 11:15 03/27/24 11:15 03/27/24 11:15 03/27/24 11:15
I&O
03/26/24 03/27/24 03/28/24
06:59 06:59 06:59
Intake Total 860 / 860 2089 / 2089
Output Total 2800 / 2800 4350 / 4350
Balance -1939 / -1939 -2259 / -2259
[2024-03-27] MEDS: CASODEX 50 MG PO (17:09)
[2024-03-27] MEDS: LUMIGAN 0.01% 1 DROP BOTH EYES (17:09)
[2024-03-28] VITALS (7 sets, daily range): BP systolic 78–98; BP diastolic 53–72; PULSE 79–109; BMI 21.4
[2024-03-28 06:12] LABS: Hematocrit 30.6 % (39.0-52.0); Hemoglobin 10.8 g/dL (13.0-18.0); Mean Corp Hgb Conc. 35.3 g/dL (33.0-37.0); Mean Corpuscular Hgb 32.6 pg (27.0-31.0); Mean Corpuscular Volume 92.4 fL (80.0-94.0); Mean Platelet Volume 8.9 fL (7.4-10.4); Platelet Count 230 10^3/uL (130-400); Red Blood Cell Count 3.31 10^6/uL (4.70-6.10); Red Cell Dist. Width 16.3 % (11.5-14.5); White Blood Cell Count 35.2 10^3/uL (4.8-10.8)
[2024-03-28 06:57] LABS: Hepatitis B Surface Antigen Negative (Negative)
[2024-03-28 07:03] LABS: ALT (SGPT) 189 U/L (0-50); AST (SGOT) 83 U/L (17-59); Alkaline Phosphatase 151 U/L (38-126); Blood Urea Nitrogen 45 mg/dl (9-20); Calcium 9.3 mg/dl (8.4-10.2); Carbon Dioxide 22 mmol/L (22-30); Chloride 96 mmol/L (98-107); Estimated Creatinine Clearance 20 ml/min; Glucose 116 mg/dl (70-99); Magnesium 2.3 mg/dl (1.6-2.3); Phosphorus 5.7 mg/dl (2.5-4.5); Potassium 4.1 mmol/L (3.5-5.1); Sodium 132 mmol/L (135-145); Total Bilirubin 0.5 mg/dl (0.2-1.3); Total Protein 6.2 g/dl (6.3-8.2); eGFR 20.44
--- NOTE | 2024-03-28 07:05 | W.PN.ONC2 ---
Today's Communication / Plan
-
Will need adjustment in chemo regimen post discharge.
Impression
Impression
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
Colon carcinoma with pulmonary metastases
Prostate carcinoma
Leukocytosis
Dehydration
Mild stomatitis
Electrolyte abnormality
Plan
Plan
Continue aggressive fluid and electrolyte replacement
Diarrhea management per GI
Regular Imodium therapy
Leukocytosis secondary to stress and previous growth factor support
Monitor CMP and CBC
Subjective/Objective
Chief Complaint
ACS Heme Onc
Subjective
Still with watery pure liquid diarrhea. Less frequency and less volume but not at baseline (oatmeal consistency). No N/V
Vital Signs:
Vital Signs
Temp Pulse Resp BP Pulse Ox
98.4 F 100 18 92/57 99
03/28/24 03:24 03/28/24 03:24 03/28/24 03:24 03/28/24 03:24 03/28/24 03:24
Lab Results:
Laboratory Data
WBC 35.2 10^3/uL (4.8-10.8) H 03/28/24 05:57
Hgb 10.8 g/dL (13.0-18.0) L 03/28/24 05:57
Plt Count 230 10^3/uL (130-400) 03/28/24 05:57
eGFR 20.44 03/28/24 05:58
Physical Exam
HEENT: Moist Mucous Membranes; No Jaundice
Cardiology: S1 and S2
Pulmonary: Clear
GI: Soft
Extremities: No C/C/E
[2024-03-28 07:15] LABS: Hepatitis B Core Ab, Total Negative (Negative); Hepatitis B Surface Antibody Negative; Hepatitis C Antibody Negative (Negative)
[2024-03-28 07:27] LABS: Hepatitis A Antibody, Total Negative (Negative)
--- NOTE | 2024-03-28 08:33 | W.PN.GI.CBS2 ---
Today's Communication / Plan
-
Change imodium to TID scheduled rather than PRN
WBC likely reactive and due to recent growth factor, seen by Oncology
Stool negative to date
Seems to be slowly improving, probable chemo-induced diarrhea
LFTs elevated but stable. Just monitor for now.
Assessment / Plan
-
Summary: Pt is a 73yo presents with hx colon CA diagnosed after perforated viscus with subtotal colectomy with end ileostomy, prostate CA, CKD, CHF, glaucoma, V tach with admission 03/24 with fatigue and weakness with syncope. . On admission
concern for increase ostomy outputs with electrolyte imbalance with elevated WBC's. He is also noted with elevated LFT's with bili 0.4, AST 62, ALT 137, alk phos 131. In reviewing with patient he was diagnosed with sigmoid adeno CA with tumor
penetration full thickness of wall with tumor adherent to TI. margin positive and no tumor seen in nodes. He recall taking oral chemo then was noted with bony mets in 2022 . Path completed and noted prostate related and given Lupron and
bicalutamide. He had further surgery for cancerous nodule in July 2023 and then started chemo with FOLFIRI with 5th cycle 03/12 with GCSF support 03/14. He states he was doing well til about 2 weeks ago. Prior to 2 weeks ago would empty ostomy
about 3 times per day but noted increased ostomy output with increase stools at night. He wag given IVF support but started end of last week with weakness and electrolyte imbalance and present to ER. Last imaging in February with multiple peritoneal
nodules in pelvis decreased in size and dominant node resected with concern for osseous mets. multiple stones in bladder. No other new medication.
Impression:
-elevated ostomy output
-leukocytosis
-decreased taste with concern for stomatitis
-electrolyte imbalance
-metastatic colon CA on current chemo - FOLFIRI with 5th cycle 6/5 with GCSF support 03/14
-prostate CA on Bicalutamide
other medical problems;
-CKD
-CHF
-V tach
Subjective
Subjective
Date of Service: March 28, 2024
Still passing liquid BM from ostomy, but output slightly less. Denies abd pain. Taste improving
Objective
Data Reviewed
Laboratory Data:
Laboratory Results
03/28/24 05:57
03/28/24 05:58
Laboratory Results
Phosphorus 5.7 mg/dl (2.5-4.5) H 03/28/24 05:58
Magnesium 2.3 mg/dl (1.6-2.3) 03/28/24 05:58
Total Bilirubin 0.5 mg/dl (0.2-1.3) 03/28/24 05:58
AST 83 U/L (17-59) H 03/28/24 05:58
ALT 189 U/L (0-50) H 03/28/24 05:58
Alkaline Phosphatase 151 U/L (38-126) H 03/28/24 05:58
Vital Signs and I&O:
Vital Signs
Temp Pulse Resp BP Pulse Ox
97.7 F 115 18 92/64 100
03/28/24 07:50 03/28/24 07:50 03/28/24 07:50 03/28/24 07:50 03/28/24 07:50
I&O
03/27/24 03/28/24 03/29/24
06:59 06:59 06:59
Intake Total 0 / 0 3600 / 3600
Output Total 4350 / 4350 4120 / 4120
Balance -2260 / -2260 -520 / -520
Physical Exam
Physical Exam
GI: Soft and Other (RLQ ostomy)
[2024-03-28] MEDS: HEPARIN 5000 UNITS SC ×2 (10:46→21:37)
--- NOTE | 2024-03-28 14:24 | CM ---
Addendum entered by Eileen Flores RN 03/28/24 16:23:
IMM signed and placed on chart.
Original Note:
Reviewed the chart notes and spoke with the patient at the bedside. Patient continues with high level volume output. Immodium increased to 3x's daily. Patient anticipated being discharged to home one medically stable with no needs. CM continues
to be available to patient/family and is monitoring medical plan for needs at discharge.
Plan: Discharge to home when medically stable.
--- NOTE | 2024-03-28 15:18 | W.PN.NEPH.PH ---
Today's Communication / Plan
-
- 150cc LR
Assessment/Plan
-
Assessment:
CHANTAL - likely pre-renal
Hyponatremia, hypovolemic presentation
hypokalemia (repletion provided)
hypocalcemia
hypomagnesemia (resolved)
Metabolic acidosis -improving
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
Left renal cyst
urinary bladder stones
Plan:
- initially concerned for a possible fanconi syndrome in the setting of chemotherapy but his picture just appears more consistent with GI losses
- agree with aggressive repletion of mg, K, calcium
- regarding hyponatremia --> urine Na if <5, indicative of hypovolemic hyponatremia, sodium improving with volume resuscitation
- Sodium rising with IV fluid
- Plan for LR today
- Creatinine appears to be unchanged
- Patient still with significant stool output (>4L)
- Please continue to trend all electrolytes and replete
- Patient remains hypotensive consistent with volume depletion
-
-
Date of Service: March 28, 2024
CC / HPI / ROS
-
Chief Complaint:
Acute kidney injury
Hyponatremia
Hypokalemia
History of Present Illness:
Sodium up to 132
Remains hemodynamically labile
Creatinine unchanged at 3.1
Review of Systems:
Nonoliguric
Weights down
No chest pain or shortness of breath
Increase ostomy output 3.9 L
Labs
-
Labs:
WBC 35.2 10^3/uL (4.8-10.8) H 03/28/24 05:57
RBC 3.31 10^6/uL (4.70-6.10) L 03/28/24 05:57
Hgb 10.8 g/dL (13.0-18.0) L 03/28/24 05:57
Hct 30.6 % (39.0-52.0) L 03/28/24 05:57
Plt Count 230 10^3/uL (130-400) 03/28/24 05:57
Sodium 132 mmol/L (135-145) L 03/28/24 05:58
Potassium 4.1 mmol/L (3.5-5.1) D 03/28/24 05:58
Chloride 96 mmol/L (98-107) L 03/28/24 05:58
Carbon Dioxide 22 mmol/L (22-30) 03/28/24 05:58
BUN 45 mg/dl (9-20) H 03/28/24 05:58
Creatinine 3.1 mg/dL (0.7-1.3) H 03/28/24 05:58
eGFR 20.44 03/28/24 05:58
Glucose 116 mg/dl (70-99) H 03/28/24 05:58
Calcium 9.3 mg/dl (8.4-10.2) 03/28/24 05:58
Phosphorus 5.7 mg/dl (2.5-4.5) H 03/28/24 05:58
Albumin 4.0 g/dl (3.5-5.0) 03/28/24 05:58
Physical Exam
-
Vital Signs:
Vital Signs
Temp Pulse Resp BP Pulse Ox
97.5 F 111 16 88/65 97
03/28/24 11:30 03/28/24 11:30 03/28/24 11:30 03/28/24 11:30 03/28/24 11:30
Cardiovascular:: Regular rate and rhythm
Respiratory:: Bilateral: CTA
Lung Excursion:: Normal
Abdomen:: Nontender and Soft
Bowel Sounds:: Normal
Extremity Edema:: None: Bilateral:
Fuentes Catheter: No
[2024-03-28] MEDS: IMODIUM 2 MG PO ×2 (15:51→21:38)
[2024-03-28] MEDS: LR 1000 IV ×2 (15:53→22:27)
--- NOTE | 2024-03-28 17:22 | W.PN.HOSP.TC ---
Today's Communication/Plan
-
Electrolyte Replacement
IV fluids
Imodium
Assessment / Plan
Assessment / Plan
Physical Exam
General: Not in acute distress. Hard of Hearing.
HEENT: Normocephalic
Respiratory: Clear to Auscultation Bilaterally
Cardiac: S1/S2 and Regular Rhythm
GI: Soft, Non Tender, Non Distended, Normal Bowel Sounds and Other (Ileostomy)
Musculoskeletal: No Cyanosis
Skin: Warm and Dry
Neuro: AAO x 3, Nonfocal/grossly intact
Psych: Calm

Assessment/Plan
73-year-old male past medical history of colon cancer of sigmoid colon status post subtotal colectomy with ileostomy, Takotsubo cardiomyopathy, chronic HFrEF, nonsustained ventricular tachycardia, mild aortic regurgitation, presented for high output
watery output from ileostomy after chemotherapy 12 days ago. Labs showed hyponatremia, hypokalemia, hypomagnesemia, hypocalcemia and transaminitis.
#High output watery output from ileostomy after chemotherapy ~12 days prior to presentation
#Diarrhea Suspected Related to Chemotherapy - Chemotherapy associated enteritis status post cycle 5 FOLFIRI
#Mild Stomatitis
-GI consulted, recommendations appreciated will continue to monitor for now
-Oral supplement BID
-Avoid caffeinated products, continue low residue, low lactose diet
-Stool studies ordered, WBCs moderate, C. diff negative
-Continue Imodium but on TID scheduling
-I's and O's
-Status IV fluids with potassium
-Now on LR IV fluids -- continue LR IV fluids
#Leukocytosis - secondary to stress and previous growth factor support
-Oncology consulted, recommendations appreciated
#Acute hypotension secondary to CHANTAL/volume depletion from chemotherapy
#Hx volume depletion with chemotherapy has been getting IV NSS twice a week as outpatient
#Hx syncope
-Continue supportive care with IV fluids
#CHANTAL - likely pre-renal - on CKD 3B�4A
-Overall Improved
-Continue IV fluids
-Nephrology consulted, recommendations appreciated
#Metabolic Acidosis
-RESOLVED
-Continue to monitor
#Acute hypokalemia - RESOLVED
-replacement ordered
-Trend/monitor electrolytes
#Hypomagnesemia - RESOLVED
-Replaced
#Hypovolemic Hyponatremia
-Nephrology consulted, recommendations appreciated
-3% saline ordered by Nephrology
-Continue current IV fluids with the potassium
#Hypocalcemia - RESOLVED
-Monitor corrected calcium
-Calcium gluconate
#Prostate cancer on current chemotherapy
Had history of pelvic mets July 2023 recent PET scan he reports was negative
-Continue bicalutamide 50 mg every afternoon
-Follows with [facility]
#Colon CA status post colectomy with ileostomy prior chemo November 2022
#Colon carcinoma with pulmonary metastases
#Subtotal colectomy with ileostomy following bowel perforation February 2022
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
-History of sepsis 2021 with cardiomyopathy
#Transaminitis
-GI consulted as above, recommendations appreciated
#Left renal cyst
#Urinary bladder stones
#Glaucoma Hx-continue Lumigan eyedrops
DVT prophylaxis
Subcu heparin
Full code
Anticipated Discharge: 24 - 48 hours
Subjective/Interval History
-
Date of Service: March 28, 2024
Patient was seen and examined. He denied any new significant symptoms or complaints.
Objective Data
-
Labs:
Laboratory Results
03/28/24 03/28/24
05:57 05:58
WBC 35.2 H
Hgb 10.8 L
Hct 30.6 L
Plt Count 230
Sodium 132 L
Potassium 4.1 D
Chloride 96 L
Carbon Dioxide 22
BUN 45 H
Creatinine 3.1 H
Glucose 116 H
Calcium 9.3
Total Bilirubin 0.5
AST 83 H
ALT 189 H
Alkaline Phosphatase 151 H
Vital Signs:
Vital Signs
Temp Pulse Resp BP Pulse Ox
97.2 F 116 16 98/60 99
03/28/24 15:35 03/28/24 15:35 03/28/24 15:35 03/28/24 15:35 03/28/24 15:35
I&O
03/27/24 03/28/24 03/29/24
06:59 06:59 06:59
Intake Total 0 / 2089 3600 / 3600
Output Total 4350 / 4350 4120 / 4120
Balance -2260 / -2260 -520 / -520
[2024-03-28] MEDS: LUMIGAN 0.01% 1 DROP BOTH EYES (18:05)
[2024-03-28] MEDS: CASODEX 50 MG PO (18:05)
[2024-03-29 03:26] VITALS: BP 97/64
[2024-03-29] MEDS: LR 1000 IV ×2 (04:54→11:19)
[2024-03-29 05:57] LABS: Hematocrit 28.8 % (39.0-52.0); Mean Corp Hgb Conc. 34.7 g/dL (33.0-37.0); Mean Corpuscular Hgb 32.9 pg (27.0-31.0); Mean Corpuscular Volume 94.7 fL (80.0-94.0); Mean Platelet Volume 8.9 fL (7.4-10.4); Platelet Count 218 10^3/uL (130-400); Red Blood Cell Count 3.04 10^6/uL (4.70-6.10); Red Cell Dist. Width 16.3 % (11.5-14.5); White Blood Cell Count 33.2 10^3/uL (4.8-10.8)
[2024-03-29 06:00] VITALS: BMI 21.7
[2024-03-29 06:18] LABS: ALT (SGPT) 163 U/L (0-50); AST (SGOT) 70 U/L (17-59); Albumin 3.5 g/dl (3.5-5.0); Alkaline Phosphatase 138 U/L (38-126); Blood Urea Nitrogen 52 mg/dl (9-20); Calcium 8.9 mg/dl (8.4-10.2); Carbon Dioxide 27 mmol/L (22-30); Chloride 88 mmol/L (98-107); Direct Bilirubin 0.3 mg/dl (0.0-0.4); Estimated Creatinine Clearance 19 ml/min; Glucose 110 mg/dl (70-99); Potassium 3.4 mmol/L (3.5-5.1); Sodium 128 mmol/L (135-145); Total Bilirubin 0.5 mg/dl (0.2-1.3); Total Protein 5.6 g/dl (6.3-8.2); eGFR 18.97
[2024-03-29 07:53] VITALS: BP 89/60
[2024-03-29 08:34] LABS: Absolute Neutrophils -Man Diff 18.5 10^3/uL (1.4-6.5); Band Neutrophils 10 % (0-3); Lymphocytes 32 % (20-51); Metamyelocytes 1 % (-); Monocytes 8 % (2-9); Myelocytes 3 % (-); Normal RBC Morphology Yes; Platelets Checked Yes; Segmented Neutrophils 46 % (42-75); Total Cells Counted 100
--- NOTE | 2024-03-29 09:06 | W.PN.GI.CBS2 ---
Today's Communication / Plan
-
Diarrhea improved
Continue imodium TID for now and back off once back to baseline
Cr unchanged, probable due to GI losses in setting of CKD
Assessment / Plan
-
Summary: Pt is a 73yo presents with hx colon CA diagnosed after perforated viscus with subtotal colectomy with end ileostomy, prostate CA, CKD, CHF, glaucoma, V tach with admission 03/24 with fatigue and weakness with syncope. . On admission
concern for increase ostomy outputs with electrolyte imbalance with elevated WBC's. He is also noted with elevated LFT's with bili 0.4, AST 62, ALT 137, alk phos 131. In reviewing with patient he was diagnosed with sigmoid adeno CA with tumor
penetration full thickness of wall with tumor adherent to TI. margin positive and no tumor seen in nodes. He recall taking oral chemo then was noted with bony mets in 2022 . Path completed and noted prostate related and given Lupron and
bicalutamide. He had further surgery for cancerous nodule in July 2023 and then started chemo with FOLFIRI with 5th cycle /5 with GCSF support 03/14. He states he was doing well til about 2 weeks ago. Prior to 2 weeks ago would empty ostomy
about 3 times per day but noted increased ostomy output with increase stools at night. He wag given IVF support but started end of last week with weakness and electrolyte imbalance and present to ER. Last imaging in February with multiple peritoneal
nodules in pelvis decreased in size and dominant node resected with concern for osseous mets. multiple stones in bladder. No other new medication.
Impression:
-elevated ostomy output
-leukocytosis
-decreased taste with concern for stomatitis
-electrolyte imbalance
-metastatic colon CA on current chemo - FOLFIRI with 5th cycle /5 with GCSF support 03/14
-prostate CA on Bicalutamide
other medical problems;
-CKD
-CHF
-V tach
Subjective
Subjective
Date of Service: March 29, 2024
Stool output decreased. Less frequent need to empty ieostomy bag back to baseline 3x/day
Objective
Data Reviewed
Laboratory Data:
Laboratory Results
03/29/24 05:51
03/29/24 05:51
Laboratory Results
Phosphorus 5.7 mg/dl (2.5-4.5) H 03/28/24 05:58
Magnesium 2.0 mg/dl (1.6-2.3) 03/29/24 05:51
Total Bilirubin 0.5 mg/dl (0.2-1.3) 03/29/24 05:51
AST 70 U/L (17-59) H 03/29/24 05:51
ALT 163 U/L (0-50) H 03/29/24 05:51
Alkaline Phosphatase 138 U/L (38-126) H 03/29/24 05:51
Vital Signs and I&O:
Vital Signs
Temp Pulse Resp BP Pulse Ox
98.0 F 107 16 89/60 99
03/29/24 07:53 03/29/24 07:53 03/29/24 07:53 03/29/24 07:53 03/29/24 07:53
I&O
03/28/24 03/29/24 03/30/24
06:59 06:59 06:59
Intake Total 3600 / 3600 3880 / 3880
Output Total 4120 / 4120 3240 / 3240
Balance -520 / -520 640 / 640
Physical Exam
Physical Exam
GI: Soft, Non Distended, Non Tender and Other (RLQ ileostomy with liquid stool)
[2024-03-29] MEDS: KCL 40 MEQ PO (09:09)
[2024-03-29] MEDS: IMODIUM 2 MG PO ×3 (09:10→22:55)
[2024-03-29] MEDS: HEPARIN 5000 UNITS SC ×2 (10:10→22:24)
[2024-03-29 11:54] VITALS: BP 83/59
--- NOTE | 2024-03-29 13:27 | W.PN.NEPH.PH ---
Today's Communication / Plan
-
- NS at 150cc/hr
Assessment/Plan
-
Assessment:
CHANTAL - likely pre-renal
Hyponatremia, hypovolemic presentation
hypokalemia (repletion provided)
hypocalcemia
hypomagnesemia (resolved)
Metabolic acidosis -improving
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
Left renal cyst
urinary bladder stones
Plan:
- initially concerned for a possible fanconi syndrome in the setting of chemotherapy but his picture just appears more consistent with GI losses
- agree with aggressive repletion of mg, K, calcium
- regarding hyponatremia --> urine Na if <5, indicative of hypovolemic hyponatremia, sodium improving with volume resuscitation
- Sodium rising with IV fluid, now down to 128 (likely 2/2 to LR)
- change to NS at 150cc/hr
- Creatinine slightly up
- Patient still with significant stool output (>3L) but appears to be slowing
- Please continue to trend all electrolytes and replete
- Patient remains hypotensive consistent with volume depletion
-
-
Date of Service: March 29, 2024
CC / HPI / ROS
-
Chief Complaint:
Acute kidney injury
Hyponatremia
Hypokalemia
History of Present Illness:
Sodium down to 128
Remains hemodynamically labile
Creatinine unchanged at 3.3
Review of Systems:
Nonoliguric
Weights down
No chest pain or shortness of breath
Increase ostomy output 2.9L
Labs
-
Labs:
WBC 33.2 10^3/uL (4.8-10.8) H 03/29/24 05:51
RBC 3.04 10^6/uL (4.70-6.10) L 03/29/24 05:51
Hgb 10.0 g/dL (13.0-18.0) L 03/29/24 05:51
Hct 28.8 % (39.0-52.0) L 03/29/24 05:51
Plt Count 218 10^3/uL (130-400) 03/29/24 05:51
Sodium 128 mmol/L (135-145) L 03/29/24 05:51
Potassium 3.4 mmol/L (3.5-5.1) L 03/29/24 05:51
Chloride 88 mmol/L (98-107) L 03/29/24 05:51
Carbon Dioxide 27 mmol/L (22-30) 03/29/24 05:51
BUN 52 mg/dl (9-20) H 03/29/24 05:51
Creatinine 3.3 mg/dL (0.7-1.3) H 03/29/24 05:51
eGFR 18.97 03/29/24 05:51
Glucose 110 mg/dl (70-99) H 03/29/24 05:51
Calcium 8.9 mg/dl (8.4-10.2) 03/29/24 05:51
Phosphorus 5.7 mg/dl (2.5-4.5) H 03/28/24 05:58
Albumin 3.5 g/dl (3.5-5.0) 03/29/24 05:51
Physical Exam
-
Vital Signs:
Vital Signs
Temp Pulse Resp BP Pulse Ox
98.4 F 104 16 83/59 99
03/29/24 11:54 03/29/24 11:54 03/29/24 11:54 03/29/24 11:54 03/29/24 11:54
Cardiovascular:: Regular rate and rhythm
Respiratory:: Bilateral: Coarse
Lung Excursion:: Normal
Abdomen:: Nontender and Soft
Bowel Sounds:: Normal
Extremity Edema:: None: Bilateral:
Fuentes Catheter: No
[2024-03-29] MEDS: NSS 1000 IV ×2 (14:39→21:03)
--- NOTE | 2024-03-29 14:46 | W.PN.HOSP.TC ---
Today's Communication/Plan
-
Continue to monitor electrolytes
NS IV fluids 150 cc/hr as creatinine has bumped up
Assessment / Plan
Assessment / Plan
Physical Exam
General: Not in acute distress. Hard of Hearing.
HEENT: Normocephalic
Respiratory: Clear to Auscultation Bilaterally
Cardiac: S1/S2 and Regular Rhythm
GI: Soft, Non Tender, Non Distended, Normal Bowel Sounds and Other (Ileostomy)
Musculoskeletal: No Cyanosis
Skin: Warm and Dry
Neuro: AAO x 3, Nonfocal/grossly intact
Psych: Calm

Assessment/Plan
73-year-old male past medical history of colon cancer of sigmoid colon status post subtotal colectomy with ileostomy, Takotsubo cardiomyopathy, chronic HFrEF, nonsustained ventricular tachycardia, mild aortic regurgitation, presented for high output
watery output from ileostomy after chemotherapy 12 days ago. Labs showed hyponatremia, hypokalemia, hypomagnesemia, hypocalcemia and transaminitis.
#High output watery output from ileostomy after chemotherapy ~12 days prior to presentation
#Diarrhea Suspected Related to Chemotherapy - Chemotherapy associated enteritis status post cycle 5 FOLFIRI
#Mild Stomatitis
-GI consulted, recommendations appreciated will continue to monitor for now
-Oral supplement BID
-Avoid caffeinated products, continue low residue, low lactose diet
-Stool studies ordered, WBCs moderate, C. diff negative
-Continue Imodium but on TID scheduling and back off once back to baseline
-I's and O's
-Status IV fluids with potassium
-Continue NS IV fluids at 150 cc/hr
#Leukocytosis - secondary to stress and previous growth factor support
-Oncology consulted, recommendations appreciated
#Acute hypotension secondary to CHANTAL/volume depletion from chemotherapy
#Hx volume depletion with chemotherapy has been getting IV NSS twice a week as outpatient
#Hx syncope
-Continue supportive care with IV fluids
#CHANTAL - likely pre-renal - on CKD 3B�4A
-Overall Improved
-Continue IV fluids
-Nephrology consulted, recommendations appreciated
#Metabolic Acidosis
-RESOLVED
-Continue to monitor
#Acute hypokalemia - RESOLVED
-replacement ordered
-Trend/monitor electrolytes
#Hypomagnesemia - RESOLVED
-Replaced
#Hypovolemic Hyponatremia
-Nephrology consulted, recommendations appreciated
-3% saline ordered by Nephrology
-Continue current IV fluids
#Hypocalcemia - RESOLVED
-Monitor corrected calcium
-Calcium gluconate
#Prostate cancer on current chemotherapy
Had history of pelvic mets July 2023 recent PET scan he reports was negative
-Continue bicalutamide 50 mg every afternoon
-Follows [facility]
#Colon CA status post colectomy with ileostomy prior chemo November 2022
#Colon carcinoma with pulmonary metastases
#Subtotal colectomy with ileostomy following bowel perforation February 2022
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
-History of sepsis 2021 with cardiomyopathy
#Transaminitis
-GI consulted as above, recommendations appreciated
#Left renal cyst
#Urinary bladder stones
#Glaucoma Hx-continue Lumigan eyedrops
DVT prophylaxis
Subcu heparin
Full code
Anticipated Discharge: > 48 hours
Subjective/Interval History
-
Date of Service: March 29, 2024
Patient was seen and examined. He denied any new symptoms.
Objective Data
-
Labs:
Laboratory Results
03/29/24
05:51
WBC 33.2 H
Hgb 10.0 L
Hct 28.8 L
Plt Count 218
Sodium 128 L
Potassium 3.4 L
Chloride 88 L
Carbon Dioxide 27
BUN 52 H
Creatinine 3.3 H
Glucose 110 H
Calcium 8.9
Total Bilirubin 0.5
AST 70 H
ALT 163 H
Alkaline Phosphatase 138 H
Vital Signs:
Vital Signs
Temp Pulse Resp BP Pulse Ox
98.4 F 104 16 83/59 99
03/29/24 11:54 03/29/24 11:54 03/29/24 11:54 03/29/24 11:54 03/29/24 11:54
I&O
03/28/24 03/29/24 03/30/24
06:59 06:59 06:59
Intake Total 3600 / 3600 3880 / 3880
Output Total 4120 / 4120 3240 / 3240
Balance -520 / -520 640 / 640
[2024-03-29 15:45] VITALS: BP 89/60
[2024-03-29] MEDS: CASODEX 50 MG PO (17:13)
[2024-03-29] MEDS: LUMIGAN 0.01% 1 DROP BOTH EYES (17:14)
[2024-03-29 19:23] VITALS: BP 96/63
[2024-03-29 22:06] LABS: Blood Urea Nitrogen 48 mg/dl (9-20); Carbon Dioxide 30 mmol/L (22-30); Chloride 92 mmol/L (98-107); Estimated Creatinine Clearance 24 ml/min; Glucose 123 mg/dl (70-99); Potassium 3.4 mmol/L (3.5-5.1); Sodium 128 mmol/L (135-145); eGFR 24.13
[2024-03-29 23:03] VITALS: BP 97/65
[2024-03-30] VITALS (7 sets, daily range): BP systolic 81–98; BP diastolic 55–64; PULSE 95; O2SAT 100; BMI 22.1
[2024-03-30] MEDS: NSS 1000 IV ×2 (03:22→09:48)
[2024-03-30 04:53] LABS: Hematocrit 25.2 % (39.0-52.0); Hemoglobin 8.5 g/dL (13.0-18.0); Mean Corp Hgb Conc. 33.7 g/dL (33.0-37.0); Mean Corpuscular Hgb 32.6 pg (27.0-31.0); Mean Corpuscular Volume 96.6 fL (80.0-94.0); Nucleated Red Blood Cells % 0.2 % (-); Platelet Count 201 10^3/uL (130-400); Red Blood Cell Count 2.61 10^6/uL (4.70-6.10); Red Cell Dist. Width 16.3 % (11.5-14.5); White Blood Cell Count 26.1 10^3/uL (4.8-10.8)
[2024-03-30 05:14] LABS: ALT (SGPT) 123 U/L (0-50); AST (SGOT) 59 U/L (17-59); Albumin 2.9 g/dl (3.5-5.0); Alkaline Phosphatase 121 U/L (38-126); Blood Urea Nitrogen 44 mg/dl (9-20); Calcium 8.1 mg/dl (8.4-10.2); Carbon Dioxide 28 mmol/L (22-30); Chloride 95 mmol/L (98-107); Estimated Creatinine Clearance 27 ml/min; Glucose 98 mg/dl (70-99); Magnesium 1.8 mg/dl (1.6-2.3); Potassium 3.6 mmol/L (3.5-5.1); Sodium 129 mmol/L (135-145); Total Bilirubin 0.4 mg/dl (0.2-1.3); Total Protein 4.7 g/dl (6.3-8.2); eGFR 27.79
[2024-03-30] MEDS: HEPARIN 5000 UNITS SC ×2 (09:28→21:17)
[2024-03-30] MEDS: IMODIUM 2 MG PO (09:28)
[2024-03-30 10:02] LABS: Absolute Neutrophils -Man Diff 17.2 10^3/uL (1.4-6.5); Atypical Lymphocytes 2 %; Band Neutrophils 6 % (0-3); Eosinophils 1 % (0-6); Lymphocytes 24 % (20-51); Metamyelocytes 2 % (-); Monocytes 4 % (2-9); Myelocytes 1 % (-); Normal RBC Morphology Yes; Platelets Checked Yes; Segmented Neutrophils 60 % (42-75); Total Cells Counted 100
--- NOTE | 2024-03-30 11:10 | W.PN.NEPH.PH ---
Today's Communication / Plan
-
- stop IVF
Assessment/Plan
-
Assessment:
CHANTAL - likely pre-renal
Hyponatremia, hypovolemic presentation
hypokalemia (repletion provided)
hypocalcemia
hypomagnesemia (resolved)
Metabolic acidosis -improving
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
Left renal cyst
urinary bladder stones
Plan:
- initially concerned for a possible fanconi syndrome in the setting of chemotherapy but his picture just appears more consistent with GI losses
- agree with aggressive repletion of mg, K, calcium
- regarding hyponatremia --> urine Na if <5, indicative of hypovolemic hyponatremia, sodium improving with volume resuscitation
- Sodium rising with IV fluid, now to 129 (did drop with LR)
- Cr peaked at 3.3, now down to 2.4 (bl Cr around 2.2)
- okay to stop IVF, encourage PO and see how patient does
- Patient still with significant stool output (>2L) but appears to be slowing
- Please continue to trend all electrolytes and replete
- Patient remains hypotensive consistent with volume depletion
-
-
Date of Service: March 30, 2024
CC / HPI / ROS
-
Chief Complaint:
Acute kidney injury
Hyponatremia
Hypokalemia
History of Present Illness:
Sodium down to 129
Remains hemodynamically labile
Creatinine improved to 2.4
Review of Systems:
Nonoliguric
Weights down
No chest pain or shortness of breath
Increase ostomy output 2.2L
Labs
-
Labs:
WBC 26.1 10^3/uL (4.8-10.8) H 03/30/24 04:41
RBC 2.61 10^6/uL (4.70-6.10) L 03/30/24 04:41
Hgb 8.5 g/dL (13.0-18.0) L 03/30/24 04:41
Hct 25.2 % (39.0-52.0) L 03/30/24 04:41
Plt Count 201 10^3/uL (130-400) 03/30/24 04:41
Sodium 129 mmol/L (135-145) L 03/30/24 04:41
Potassium 3.6 mmol/L (3.5-5.1) 03/30/24 04:41
Chloride 95 mmol/L (98-107) L 03/30/24 04:41
Carbon Dioxide 28 mmol/L (22-30) 03/30/24 04:41
BUN 44 mg/dl (9-20) H 03/30/24 04:41
Creatinine 2.4 mg/dL (0.7-1.3) H 03/30/24 04:41
eGFR 27.79 03/30/24 04:41
Glucose 98 mg/dl (70-99) 03/30/24 04:41
Calcium 8.1 mg/dl (8.4-10.2) L 03/30/24 04:41
Phosphorus 5.7 mg/dl (2.5-4.5) H 03/28/24 05:58
Albumin 2.9 g/dl (3.5-5.0) L 03/30/24 04:41
Physical Exam
-
Vital Signs:
Vital Signs
Temp Pulse Resp BP Pulse Ox
98.9 F 110 18 97/63 100
03/30/24 03:27 03/30/24 08:00 03/30/24 08:00 03/30/24 08:00 03/30/24 08:00
Cardiovascular:: Regular rate and rhythm
Respiratory:: Bilateral: CTA
Lung Excursion:: Normal
Abdomen:: Nontender and Soft
Bowel Sounds:: Normal
Extremity Edema:: None: Bilateral:
Fuentes Catheter: No
--- NOTE | 2024-03-30 15:09 | W.PN.GI.CBS2 ---
Today's Communication / Plan
-
Imodium decreased to once daily
I told pt he can stop it after d/c once his BMs back to baseline
Will sign off. Please call back if needed
Assessment / Plan
-
Summary: Pt is a 73yo presents with hx colon CA diagnosed after perforated viscus with subtotal colectomy with end ileostomy, prostate CA, CKD, CHF, glaucoma, V tach with admission 03/24 with fatigue and weakness with syncope. . On admission
concern for increase ostomy outputs with electrolyte imbalance with elevated WBC's. He is also noted with elevated LFT's with bili 0.4, AST 62, ALT 137, alk phos 131. In reviewing with patient he was diagnosed with sigmoid adeno CA with tumor
penetration full thickness of wall with tumor adherent to TI. margin positive and no tumor seen in nodes. He recall taking oral chemo then was noted with bony mets in 2022 . Path completed and noted prostate related and given Lupron and
bicalutamide. He had further surgery for cancerous nodule in July 2023 and then started chemo with FOLFIRI with 5th cycle /5 with GCSF support 03/14. He states he was doing well til about 2 weeks ago. Prior to 2 weeks ago would empty ostomy
about 3 times per day but noted increased ostomy output with increase stools at night. He wag given IVF support but started end of last week with weakness and electrolyte imbalance and present to ER. Last imaging in February with multiple peritoneal
nodules in pelvis decreased in size and dominant node resected with concern for osseous mets. multiple stones in bladder. No other new medication.
Impression:
-elevated ostomy output
-leukocytosis
-decreased taste with concern for stomatitis
-electrolyte imbalance
-metastatic colon CA on current chemo - FOLFIRI with 5th cycle /5 with GCSF support 03/14
-prostate CA on Bicalutamide
other medical problems;
-CKD
-CHF
-V tach
Subjective
Subjective
Date of Service: March 30, 2024
Ileostomy output continues to improve slowly. Now about 30% formed (usually about 80%)
Objective
Data Reviewed
Laboratory Data:
Laboratory Results
03/30/24 04:41
03/30/24 04:41
Laboratory Results
Phosphorus 5.7 mg/dl (2.5-4.5) H 03/28/24 05:58
Magnesium 1.8 mg/dl (1.6-2.3) 03/30/24 04:41
Total Bilirubin 0.4 mg/dl (0.2-1.3) 03/30/24 04:41
AST 59 U/L (17-59) 03/30/24 04:41
ALT 123 U/L (0-50) H 03/30/24 04:41
Alkaline Phosphatase 121 U/L (38-126) 03/30/24 04:41
Vital Signs and I&O:
Vital Signs
Temp Pulse Resp BP Pulse Ox
98.3 F 99 18 91/58 98
03/30/24 11:10 03/30/24 11:10 03/30/24 11:10 03/30/24 11:10 03/30/24 11:10
I&O
03/29/24 03/30/24 03/31/24
06:59 06:59 06:59
Intake Total 3880 / 3880 4920 / 4920
Output Total 3240 / 3240 2825 / 2825
Balance 640 / 640 2094 / 2094
Physical Exam
Physical Exam
GI: Soft and Non Tender
--- NOTE | 2024-03-30 16:11 | W.PN.HOSP.TC ---
Today's Communication/Plan
-
AM labs
IV fluids stopped
Assessment / Plan
Assessment / Plan
Physical Exam
General: Not in acute distress. Hard of Hearing.
HEENT: Normocephalic
Respiratory: Clear to Auscultation Bilaterally
Cardiac: S1/S2 and Regular Rhythm
GI: Soft, Non Tender, Non Distended, Normal Bowel Sounds and Other (Ileostomy)
Musculoskeletal: No Cyanosis
Skin: Warm and Dry
Neuro: AAO x 3, Nonfocal/grossly intact
Psych: Calm

Assessment/Plan
73-year-old male past medical history of colon cancer of sigmoid colon status post subtotal colectomy with ileostomy, Takotsubo cardiomyopathy, chronic HFrEF, nonsustained ventricular tachycardia, mild aortic regurgitation, presented for high output
watery output from ileostomy after chemotherapy 12 days ago. Labs showed hyponatremia, hypokalemia, hypomagnesemia, hypocalcemia and transaminitis.
#High output watery output from ileostomy after chemotherapy ~12 days prior to presentation
#Diarrhea Suspected Related to Chemotherapy - Chemotherapy associated enteritis status post cycle 5 FOLFIRI
#Mild Stomatitis
-GI consulted, recommendations appreciated will continue to monitor for now
-Oral supplement BID
-Avoid caffeinated products, continue low residue, low lactose diet
-Stool studies ordered, C. diff negative, remaining results unremarkable
-Continue Imodium but at decreased frequency of daily instead of TID -- patient can stop Imodium after discharge once his bowel movements are back to baseline
-I's and O's
-Status post IV fluids with potassium and normal saline, now IV fluids stopped
#Leukocytosis - secondary to stress and previous growth factor support
-Oncology consulted, recommendations appreciated
#Acute hypotension secondary to CHANTAL/volume depletion from chemotherapy
#History of volume depletion with chemotherapy has been getting IV NSS twice a week as outpatient
#History of syncope
-Status post
#CHANTAL - likely pre-renal - on CKD 3B�4A
-Overall Improved
-Okay to stop IV fluids as per nephrology, monitor labs after that
-Nephrology consulted, recommendations appreciated
#Metabolic Acidosis
-RESOLVED
-Continue to monitor
#Acute hypokalemia - RESOLVED
-Replacement ordered
-Trend/monitor electrolytes
#Hypomagnesemia - RESOLVED
-Replaced
#Hypovolemic Hyponatremia - IMPROVED
-Nephrology consulted, recommendations appreciated
-3% saline ordered by Nephrology
-Continue current IV fluids
#Hypocalcemia - RESOLVED
-Monitor corrected calcium
-Calcium gluconate
#Prostate cancer on current chemotherapy
Had history of pelvic mets July 2023 recent PET scan he reports was negative
-Continue bicalutamide 50 mg every afternoon
-Follows with [facility]
#Colon CA status post colectomy with ileostomy prior chemo November 2022
#Colon carcinoma with pulmonary metastases
#Subtotal colectomy with ileostomy following bowel perforation February 2022
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
-History of sepsis 2021 with cardiomyopathy
#Transaminitis
-GI consulted as above, recommendations appreciated
#Left renal cyst
#Urinary bladder stones
#Glaucoma Hx-continue Lumigan eyedrops
DVT prophylaxis
Subcu heparin
Full code
Anticipated Discharge: 24 - 48 hours
Subjective/Interval History
-
Date of Service: March 30, 2024
Patient was seen and examined. He denied any new, significant symptoms or complaints.
Objective Data
-
Labs:
Laboratory Results
03/30/24
04:41
WBC 26.1 H
Hgb 8.5 L
Hct 25.2 L
Plt Count 201
Sodium 129 L
Potassium 3.6
Chloride 95 L
Carbon Dioxide 28
BUN 44 H
Creatinine 2.4 H
Glucose 98
Calcium 8.1 L
Total Bilirubin 0.4
AST 59
ALT 123 H
Alkaline Phosphatase 121
Vital Signs:
Vital Signs
Temp Pulse Resp BP Pulse Ox
97.9 F 98 16 88/55 100
03/30/24 15:40 03/30/24 15:40 03/30/24 15:40 03/30/24 15:40 03/30/24 15:40
I&O
03/29/24 03/30/24 03/31/24
06:59 06:59 06:59
Intake Total 3880 / 3880 4920 / 4920
Output Total 3240 / 3240 2825 / 2825
Balance 640 / 640 2094
[2024-03-30] MEDS: CASODEX 50 MG PO (16:51)
[2024-03-30] MEDS: LUMIGAN 0.01% 1 DROP BOTH EYES (16:51)
[2024-03-31 03:22] VITALS: BP 93/58
[2024-03-31 04:53] LABS: Hematocrit 25.3 % (39.0-52.0); Hemoglobin 8.9 g/dL (13.0-18.0); Mean Corp Hgb Conc. 35.2 g/dL (33.0-37.0); Mean Corpuscular Hgb 33.2 pg (27.0-31.0); Mean Corpuscular Volume 94.4 fL (80.0-94.0); Platelet Count 222 10^3/uL (130-400); Red Blood Cell Count 2.68 10^6/uL (4.70-6.10); Red Cell Dist. Width 16.6 % (11.5-14.5); White Blood Cell Count 25.1 10^3/uL (4.8-10.8)
[2024-03-31 05:00] LABS: ALT (SGPT) 110 U/L (0-50); AST (SGOT) 51 U/L (17-59); Albumin 3.1 g/dl (3.5-5.0); Alkaline Phosphatase 119 U/L (38-126); Blood Urea Nitrogen 34 mg/dl (9-20); Calcium 8.6 mg/dl (8.4-10.2); Carbon Dioxide 31 mmol/L (22-30); Chloride 94 mmol/L (98-107); Estimated Creatinine Clearance 31 ml/min; Glucose 101 mg/dl (70-99); Magnesium 1.5 mg/dl (1.6-2.3); Potassium 3.6 mmol/L (3.5-5.1); Sodium 131 mmol/L (135-145); Total Bilirubin 0.4 mg/dl (0.2-1.3); Total Protein 5.1 g/dl (6.3-8.2); eGFR 32.62
[2024-03-31 05:51] VITALS: BMI 22.0
[2024-03-31 07:13] LABS: Absolute Neutrophils -Man Diff 17.5 10^3/uL (1.4-6.5); Band Neutrophils 6 % (0-3); Lymphocytes 22 % (20-51); Metamyelocytes 3 % (-); Monocytes 4 % (2-9); Myelocytes 1 % (-); Platelets Checked Yes; Segmented Neutrophils 64 % (42-75)
[2024-03-31 07:14] LABS: Anisocytosis 1+; Hypochromasia Slight; Normal RBC Morphology No; Polychromasia Slight; Total Cells Counted 100
[2024-03-31 07:50] VITALS: BP 95/65
--- NOTE | 2024-03-31 09:49 | W.PN.HOSP.TC ---
Today's Communication/Plan
-
Mag supplement
potential dc tomorrow pending labs
Updated Dr. Zapien, pt will need outpt follow up
Assessment / Plan
Assessment / Plan
Assessment/Plan
73-year-old male past medical history of colon cancer of sigmoid colon status post subtotal colectomy with ileostomy, Takotsubo cardiomyopathy, chronic HFrEF, nonsustained ventricular tachycardia, mild aortic regurgitation, presented for high output
watery output from ileostomy after chemotherapy [employer]. Labs showed hyponatremia, hypokalemia, hypomagnesemia, hypocalcemia and transaminitis.
#High output watery output from ileostomy after chemotherapy ~12 days prior to presentation
#Diarrhea Suspected Related to Chemotherapy - Chemotherapy associated enteritis status post cycle 5 FOLFIRI
#Mild Stomatitis
-GI consulted, recommendations appreciated will continue to monitor for now
-Oral supplement BID
-Avoid caffeinated products, continue low residue, low lactose diet
-Stool studies ordered, C. diff negative, remaining results unremarkable
-Continue Imodium but at decreased frequency of daily instead of TID -- patient can stop Imodium after discharge once his bowel movements are back to baseline
-I's and O's
-Status post IV fluids with potassium and normal saline, now IV fluids stopped
#Leukocytosis - secondary to stress and previous growth factor support
-Oncology consulted, recommendations appreciated. Updated Dr. Zapien
#Acute hypotension secondary to CHANTAL/volume depletion from chemotherapy
#History of volume depletion with chemotherapy has been getting IV NSS twice a week as outpatient
#History of syncope
-Status post
#CHANTAL - likely pre-renal - on CKD 3B�4A
Creat 3.3-->2.7-->2.4-->2.1
IVF stopped 03/30
-Overall Improved
-Okay to stop IV fluids as per nephrology, monitor labs after that
-Nephrology consulted, recommendations appreciated
#Metabolic Acidosis
-RESOLVED
-Continue to monitor
#Acute hypokalemia - RESOLVED
-Replacement ordered
-Trend/monitor electrolytes
#mild Hypomagnesemia - will start oral supplement
1.5
#Hypovolemic Hyponatremia - IMPROVED
#Hypocalcemia - RESOLVED
-Monitor corrected calcium
-Calcium gluconate
#Prostate cancer on current chemotherapy
Had history of pelvic mets July 2023 recent PET scan he reports was negative
-Continue bicalutamide 50 mg every afternoon
-Follows with [facility]
#Colon CA status post colectomy with ileostomy prior chemo November 2022
#Colon carcinoma with pulmonary metastases
#Subtotal colectomy with ileostomy following bowel perforation February 2022
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
-History of sepsis 2021 with cardiomyopathy
#Transaminitis
-GI consulted as above, recommendations appreciated
#Left renal cyst
#Urinary bladder stones
#Glaucoma Hx-continue Lumigan eyedrops
DVT prophylaxis
Subcu heparin
Full code
Anticipated Discharge: Within 24 hours
Subjective/Interval History
-
Date of Service: March 31, 2024
Still with watery ostomy output, but slowing down
Objective Data
-
Labs:
Laboratory Results
03/31/24
04:27
WBC 25.1 H
Hgb 8.9 L
Hct 25.3 L
Plt Count 222
Sodium 131 L
Potassium 3.6
Chloride 94 L
Carbon Dioxide 31 H
BUN 34 H
Creatinine 2.1 H
Glucose 101 H
Calcium 8.6
Total Bilirubin 0.4
AST 51
ALT 110 H
Alkaline Phosphatase 119
Vital Signs:
Vital Signs
Temp Pulse Resp BP Pulse Ox
97.7 F 107 16 95/65 99
03/31/24 07:50 03/31/24 07:50 03/31/24 07:50 03/31/24 07:50 03/31/24 07:50
I&O
03/30/24 03/31/24 04/01/24
06:59 06:59 06:59
Intake Total 4920 / 4920 1300 / 1300
Output Total 2825 / 2825 2200 / 2200 1275 / 1275
Balance 2095 / 2094 -900 / -900 -1275 / -1275
Review of Systems
-
History Source: Patient and Coordinated Provider
Constitutional: Denies Fever
EENT: Reports No Symptoms Reported
Respiratory: Reports No Symptoms
Cardiac: Reports No Symptoms
Abdomen/GI: Reports Diarrhea; Denies Abdominal Pain
Musculoskeletal: Reports No Symptoms
Neuro: Reports No Symptoms
Physical Exam
-
General: Well Developed, Well Nourished and No Apparent Distress
HEENT: Normocephalic, Atraumatic and Moist Mucous Membranes
Respiratory: Clear to Auscultation; Negative Wheezes, Rales or Rhonchi
Cardiac: Regular Rhythm and S1/S2
GI: Soft, Nontender, Nondistended and Ostomy
Musculoskeletal: No Clubbing, No Cyanosis and No Edema
Neuro: Awake, Alert and Oriented
--- NOTE | 2024-03-31 09:54 | W.PN.UPDATE ---
Update Note
Progress Note Update
Plan is noted for probable d/c 04/01.
Contacted our scheduling department to move up next Oncology provider f/u visit to week of 04/07.
[2024-03-31] MEDS: HEPARIN 5000 UNITS SC ×2 (10:00→21:35)
[2024-03-31] MEDS: IMODIUM 2 MG PO (10:00)
[2024-03-31 11:58] VITALS: BP 94/66
[2024-03-31] MEDS: MAGNESIUM OXIDE 500 MG PO ×2 (12:00→20:02)
--- NOTE | 2024-03-31 13:34 | W.PN.NEPH.PH ---
Today's Communication / Plan
-
follow BMP
Assessment/Plan
-
Assessment:
CHANTAL - likely pre-renal
Hyponatremia, hypovolemic presentation
hypokalemia (repletion provided)
hypocalcemia
hypomagnesemia (resolved)
Metabolic acidosis -improving
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
Left renal cyst
urinary bladder stones
Plan:
off IVF
follow BMP
replete mag po
-
-
Date of Service: March 31, 2024
CC / HPI / ROS
-
Chief Complaint:
Acute kidney injury
Hyponatremia
Hypokalemia
History of Present Illness:
Sodium low stable 131
Mag low 1.5
BP low stable
Creatinine improved to 2.1
Review of Systems:
No chest pain or shortness of breath
Labs
-
Labs:
WBC 25.1 10^3/uL (4.8-10.8) H 03/31/24 04:27
RBC 2.68 10^6/uL (4.70-6.10) L 03/31/24 04:27
Hgb 8.9 g/dL (13.0-18.0) L 03/31/24 04:27
Hct 25.3 % (39.0-52.0) L 03/31/24 04:27
Plt Count 222 10^3/uL (130-400) 03/31/24 04:27
Sodium 131 mmol/L (135-145) L 03/31/24 04:27
Potassium 3.6 mmol/L (3.5-5.1) 03/31/24 04:27
Chloride 94 mmol/L (98-107) L 03/31/24 04:27
Carbon Dioxide 31 mmol/L (22-30) H 03/31/24 04:27
BUN 34 mg/dl (9-20) H 03/31/24 04:27
Creatinine 2.1 mg/dL (0.7-1.3) H 03/31/24 04:27
eGFR 32.62 03/31/24 04:27
Glucose 101 mg/dl (70-99) H 03/31/24 04:27
Calcium 8.6 mg/dl (8.4-10.2) 03/31/24 04:27
Phosphorus 5.7 mg/dl (2.5-4.5) H 03/28/24 05:58
Albumin 3.1 g/dl (3.5-5.0) L 03/31/24 04:27
Physical Exam
-
Vital Signs:
Vital Signs
Temp Pulse Resp BP Pulse Ox
98.0 F 112 16 94/66 98
03/31/24 11:58 03/31/24 11:58 03/31/24 11:58 03/31/24 11:58 03/31/24 11:58
Cardiovascular:: Regular rate and rhythm
Respiratory:: Bilateral: Coarse
Lung Excursion:: Normal
Abdomen:: Nontender and Soft
Bowel Sounds:: Normal
Extremity Edema:: None: Bilateral:
[2024-03-31 15:50] VITALS: BP 99/66
--- NOTE | 2024-03-31 16:16 | CM ---
Reviewed the chart notes and spoke with the patient at the bedside. IMM signed and placed on chart. CM continues to be available to patient/family and is monitoring medical plan for needs at discharge.
Plan: Discharge to home when medically stable.
--- NOTE | 2024-03-31 17:00 | VATNOTE ---
attempted to reaccess pt. subq port per protocol ie. weekly. Pt. deferred and said he was going home tomorrow and 'seemed silly to reinsert needle' in light of d/c 04/01.
[2024-03-31] MEDS: LUMIGAN 0.01% 1 DROP BOTH EYES (18:14)
[2024-03-31] MEDS: CASODEX 50 MG PO (18:14)
[2024-03-31 19:35] VITALS: BP 85/54
[2024-03-31 23:47] VITALS: BP 96/67
[2024-04-01 03:50] VITALS: BP 80/61
[2024-04-01 04:44] LABS: Hematocrit 25.6 % (39.0-52.0); Hemoglobin 8.9 g/dL (13.0-18.0); Mean Corp Hgb Conc. 34.8 g/dL (33.0-37.0); Mean Corpuscular Hgb 33.3 pg (27.0-31.0); Mean Corpuscular Volume 95.9 fL (80.0-94.0); Mean Platelet Volume 8.9 fL (7.4-10.4); Platelet Count 219 10^3/uL (130-400); Red Blood Cell Count 2.67 10^6/uL (4.70-6.10); Red Cell Dist. Width 16.9 % (11.5-14.5); White Blood Cell Count 24.8 10^3/uL (4.8-10.8)
[2024-04-01 05:25] LABS: ALT (SGPT) 99 U/L (0-50); AST (SGOT) 44 U/L (17-59); Albumin 3.3 g/dl (3.5-5.0); Alkaline Phosphatase 138 U/L (38-126); Blood Urea Nitrogen 43 mg/dl (9-20); Calcium 8.9 mg/dl (8.4-10.2); Carbon Dioxide 31 mmol/L (22-30); Chloride 91 mmol/L (98-107); Estimated Creatinine Clearance 29 ml/min; Glucose 103 mg/dl (70-99); Magnesium 1.7 mg/dl (1.6-2.3); Potassium 3.8 mmol/L (3.5-5.1); Sodium 131 mmol/L (135-145); Total Bilirubin 0.3 mg/dl (0.2-1.3); Total Protein 5.2 g/dl (6.3-8.2); eGFR 30.85
[2024-04-01 05:39] VITALS: BMI 22.0
[2024-04-01 05:41] VITALS: BP 92/60
[2024-04-01 07:45] VITALS: BP 80/52
[2024-04-01 08:46] LABS: Absolute Neutrophils -Man Diff 14.8 10^3/uL (1.4-6.5); Anisocytosis 1+; Band Neutrophils 2 % (0-3); Lymphocytes 28 % (20-51); Metamyelocytes 1 % (-); Monocytes 7 % (2-9); Myelocytes 4 % (-); Normal RBC Morphology No; Platelets Checked Yes; Polychromasia Slight; Segmented Neutrophils 58 % (42-75); Total Cells Counted 100
[2024-04-01] MEDS: MAGNESIUM OXIDE 500 MG PO (09:24)
[2024-04-01] MEDS: IMODIUM 2 MG PO (09:24)
[2024-04-01] MEDS: HEPARIN 5000 UNITS SC (09:24)
--- NOTE | 2024-04-01 09:33 | W.PN.HOSP.TC ---
Today's Communication/Plan
-
dc to home
Assessment / Plan
Assessment / Plan
Assessment/Plan
73-year-old male past medical history of colon cancer of sigmoid colon status post subtotal colectomy with ileostomy, Takotsubo cardiomyopathy, chronic HFrEF, nonsustained ventricular tachycardia, mild aortic regurgitation, presented for high output
watery output from ileostomy after chemotherapy [employer]. Labs showed hyponatremia, hypokalemia, hypomagnesemia, hypocalcemia and transaminitis.
#High output watery output from ileostomy after chemotherapy ~12 days prior to presentation
#Diarrhea Suspected Related to Chemotherapy - Chemotherapy associated enteritis status post cycle 5 [id number]
#Mild Stomatitis
-GI consulted, recommendations appreciated will continue to monitor for now
-Oral supplement BID
-Avoid caffeinated products, continue low residue, low lactose diet
-Stool studies ordered, C. diff negative, remaining results unremarkable
-Continue Imodium but at decreased frequency of daily instead of TID -- patient can stop Imodium after discharge once his bowel movements are back to baseline
-I's and O's
-Status post IV fluids with potassium and normal saline, now IV fluids stopped
#Leukocytosis - secondary to stress and previous growth factor support
-Oncology consulted, recommendations appreciated. Updated Dr. Zapien 03/31, pt has appt with Dr. Berry on04/09
#Acute hypotension secondary to CHANTAL/volume depletion from chemotherapy better
#History of volume depletion with chemotherapy has been getting IV NSS twice a week as outpatient
#History of syncope
-Status post
#CHANTAL - likely pre-renal - on CKD 3B�4A
Creat 3.3-->2.7-->2.4-->2.1-->2.2
IVF stopped 03/30
-Overall Improved
-Okay to stop IV fluids as per nephrology, monitor labs after that
-Nephrology consulted, recommendations appreciated
#Metabolic Acidosis
-RESOLVED
-Continue to monitor
#Acute hypokalemia - RESOLVED
-Replacement ordered
-Trend/monitor electrolytes
#mild Hypomagnesemia - better
1.5-->1.7
#Hypovolemic Hyponatremia - IMPROVED
#Hypocalcemia - RESOLVED
-Monitor corrected calcium
-Calcium gluconate
#Prostate cancer on current chemotherapy
Had history of pelvic mets July 2023 recent PET scan he reports was negative
-Continue bicalutamide 50 mg every afternoon
-Follows with [facility]
#Colon CA status post colectomy with ileostomy prior chemo November 2022
#Colon carcinoma with pulmonary metastases
#Subtotal colectomy with ileostomy following bowel perforation February 2022
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
-History of sepsis 2021 with cardiomyopathy
#Transaminitis
-GI consulted as above, recommendations appreciated
#Left renal cyst
#Urinary bladder stones
#Glaucoma Hx-continue Lumigan eyedrops
DVT prophylaxis
Subcu heparin
Full code
Pt doing better, will dc
extensive dc time
More than 30 minutes spent in discharge including
Final examination of the patient
Summarizing hospital stay
Instructions for continuing care to all relevant caregivers
Preparation of discharge records, prescriptions, and referral forms
Total time spent (in minutes): 45
Anticipated Discharge: Today
Subjective/Interval History
-
Date of Service: April 01, 2024
Feels well, ostomy output has decreased. Tolerating diet and feels well enough to be discharged
Objective Data
-
Labs:
Laboratory Results
04/01/24
04:30
WBC 24.8 H
Hgb 8.9 L
Hct 25.6 L
Plt Count 219
Sodium 131 L
Potassium 3.8
Chloride 91 L
Carbon Dioxide 31 H
BUN 43 H
Creatinine 2.2 H
Glucose 103 H
Calcium 8.9
Total Bilirubin 0.3
AST 44
ALT 99 H
Alkaline Phosphatase 138 H
Vital Signs:
Vital Signs
Temp Pulse Resp BP Pulse Ox
98.4 F 105 16 92/60 99
04/01/24 03:50 04/01/24 05:41 04/01/24 03:50 04/01/24 05:41 04/01/24 03:50
I&O
03/31/24 04/01/24 04/02/24
06:59 06:59 06:59
Intake Total 1300 / 1300 1500 / 1500
Output Total 2200 / 2200 3775 / 3775
Balance -900 / -900 -2275 / -2275
Review of Systems
-
History Source: Patient and Coordinated Provider
Constitutional: Denies Fever
EENT: Reports No Symptoms Reported
Respiratory: Reports No Symptoms
Cardiac: Reports No Symptoms
Abdomen/GI: Reports Diarrhea (markedly diminished); Denies Abdominal Pain
Musculoskeletal: Reports No Symptoms
Neuro: Reports No Symptoms
Physical Exam
-
General: Well Developed, Well Nourished and No Apparent Distress
HEENT: Normocephalic, Atraumatic and Moist Mucous Membranes
Respiratory: Clear to Auscultation; Negative Wheezes, Rales or Rhonchi
Cardiac: Regular Rhythm and S1/S2
GI: Soft, Nontender, Nondistended, Normal Bowel Sounds (active BS) and Ostomy
Musculoskeletal: No Clubbing, No Cyanosis and No Edema
Neuro: Awake, Alert and Oriented
--- NOTE | 2024-04-01 09:45 | W.DS.TRANS ---
DC Summary - Licensed Surveyor
-
Discharge Instructions:
Sleep Apnea Risk Low
Instructions:
Stand-Alone Forms:
Changes to Home Medications: No
Discharge Medications:
DC Medications w/original date entered in [employer]
bimatoprost 0.01 % eye drops (Lumigan) 1 drp BOTH EYES QPM Eye condition 04/06/22
bicalutamide 50 mg tablet 50 mg PO QPM Cancer 03/15/23
loperamide 2 mg capsule 2 mg PO Q4H PRN loose stool 03/24/24
ondansetron HCl 8 mg tablet 8 mg PO Q8H PRN nausea/vomiting 03/24/24
potassium citrate 15 mEq (1,620 mg) tablet,extended release 15 meq PO BID RENAL 03/24/24
prochlorperazine maleate 10 mg tablet 10 mg PO Q6H PRN nausea/vomiting 03/24/24
Home Medication Changes
Pending Results: No
--- NOTE | 2024-04-01 10:27 | CM ---
Reviewed the chart notes. Patient for discharge to home today. Spouse will provide transportation. CM continues to be available to patient/family and is monitoring medical plan for needs at discharge.
Plan: Discharge to home today. No needs identified at this time.
--- NOTE | 2024-04-01 11:27 | W.PN.NEPH.PH ---
Today's Communication / Plan
-
dc
Assessment/Plan
-
Assessment:
CHANTAL - likely pre-renal
Hyponatremia, hypovolemic presentation
hypokalemia (repletion provided)
hypocalcemia
hypomagnesemia (resolved)
Metabolic acidosis -improving
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
Left renal cyst
urinary bladder stones
Plan:
off IVF
follow BMP
on supplemental mag
for oncology f/u OP
-
-
Date of Service: April 01, 2024
CC / HPI / ROS
-
Chief Complaint:
Acute kidney injury
Hyponatremia
Hypokalemia
History of Present Illness:
Sodium low stable 131
Mag up to 1.7
BP low stable
Creatinine stable 2.2
Review of Systems:
No chest pain or shortness of breath
Labs
-
Labs:
WBC 24.8 10^3/uL (4.8-10.8) H 04/01/24 04:30
RBC 2.67 10^6/uL (4.70-6.10) L 04/01/24 04:30
Hgb 8.9 g/dL (13.0-18.0) L 04/01/24 04:30
Hct 25.6 % (39.0-52.0) L 04/01/24 04:30
Plt Count 219 10^3/uL (130-400) 04/01/24 04:30
Sodium 131 mmol/L (135-145) L 04/01/24 04:30
Potassium 3.8 mmol/L (3.5-5.1) 04/01/24 04:30
Chloride 91 mmol/L (98-107) L 04/01/24 04:30
Carbon Dioxide 31 mmol/L (22-30) H 04/01/24 04:30
BUN 43 mg/dl (9-20) H 04/01/24 04:30
Creatinine 2.2 mg/dL (0.7-1.3) H 04/01/24 04:30
eGFR 30.85 04/01/24 04:30
Glucose 103 mg/dl (70-99) H 04/01/24 04:30
Calcium 8.9 mg/dl (8.4-10.2) 04/01/24 04:30
Phosphorus 5.7 mg/dl (2.5-4.5) H 03/28/24 05:58
Albumin 3.3 g/dl (3.5-5.0) L 04/01/24 04:30
Physical Exam
-
Vital Signs:
Vital Signs
Temp Pulse Resp BP Pulse Ox
98.1 F 110 18 80/52 99
04/01/24 07:45 04/01/24 07:45 04/01/24 07:45 04/01/24 07:45 04/01/24 07:45
Cardiovascular:: Regular rate and rhythm
Respiratory:: Bilateral: Coarse
Lung Excursion:: Normal
Abdomen:: Nontender and Soft
Bowel Sounds:: Normal
Extremity Edema:: None: Bilateral:
[2024-04-01 11:52] VITALS: BP 98/66
--- NOTE | 2024-04-01 13:09 | PTCARENOTE ---
Discharge instructions printed and given to patient. Subcu port de-accessed by IV team. Patient wishes to eat lunch before leaving.
== END 2024-04-01 14:18 | disposition home or self-care (01) | DRG 394 ==
LOC: 2 NORTH 19:55
PROVIDERS: Clinical Nurse Specialist Family Health; Hospitalist; Nurse Practitioner Adult Health; ADMITTING PHYSICIAN Hospitalist; ATTENDING PHYSICIAN Internal Medicine; CONSULT PHYSICIAN Internal Medicine Gastroenterology; CONSULT PHYSICIAN Internal Medicine Hematology & Oncology; CONSULT PHYSICIAN Student in an Organized Health Care Education/Training Program; EMERGENCY PHYSICIAN Emergency Medicine; FAMILY PHYSICIAN Internal Medicine
DX: K52.1 Toxic gastroenteritis and colitis (principal); C18.9 Malignant neoplasm of colon, unspecified; N17.9 Acute kidney failure, unspecified; I13.0 Hypertensive heart and chronic kidney disease with heart failure and stage 1 through stage 4 chronic kidney disease, or unspecified chronic kidney disease; I50.22 Chronic systolic (congestive) heart failure; E87.1 Hypo-osmolality and hyponatremia; E87.20 Acidosis, unspecified; I47.20 Ventricular tachycardia, unspecified; D61.09 Other constitutional aplastic anemia; C78.00 Secondary malignant neoplasm of unspecified lung; I95.9 Hypotension, unspecified; D72.829 Elevated white blood cell count, unspecified; E83.51 Hypocalcemia; R74.01 Elevation of levels of liver transaminase levels; H91.90 Unspecified hearing loss, unspecified ear; H40.9 Unspecified glaucoma; T45.1X5A Adverse effect of antineoplastic and immunosuppressive drugs, initial encounter; Y92.9 Unspecified place or not applicable; E86.0 Dehydration; E87.6 Hypokalemia; N18.32 Chronic kidney disease, stage 3b; E83.42 Hypomagnesemia; Z85.46 Personal history of malignant neoplasm of prostate; Z90.49 Acquired absence of other specified parts of digestive tract; Z92.21 Personal history of antineoplastic chemotherapy
CPT/HCPCS: 80048; 80053; 81003; 82248; 82607; 82728; 82746; 83540; 83550; 83735; 83930; 83935; 84100; 84300; 85025; 85027; 86704; 86706; 86708; 86803; 87045; 87046; 87324; 87328; 87329; 87340; 87427; 87449; 89055; 93005; 96374; 97162; 97166; 97530; 99285

== ENCOUNTER → 2024-04-07 15:38 | Outpatient (REF) | payer MEDICARE, SELFPAY ==
[2024-04-07 10:55] LABS: % Basophils 0.9 % (0-2); % Eosinophils 0.9 % (0-6); % Immature Granulocytes 0.9 % (0-0.5); % Lymphocytes 31.5 % (20.5-51.1); % Monocytes 8.7 % (1.7-9.3); % Neutrophils 57.1 % (42.2-75.2); Absolute Basophils 0.1 10^3/uL (0-0.2); Absolute Eosinophils 0.1 10^3/uL (0-0.7); Absolute Immature Granulocytes 0.1 10^3/uL (0-0.05); Absolute Lymphocytes 3.7 10^3/uL (1.2-3.4); Absolute Neutrophils 6.6 10^3/uL (1.4-6.5); Hematocrit 27.8 % (39.0-52.0); Hemoglobin 9.1 g/dL (13.0-18.0); Mean Corp Hgb Conc. 32.7 g/dL (33.0-37.0); Mean Corpuscular Hgb 33.3 pg (27.0-31.0); Mean Corpuscular Volume 101.8 fL (80.0-94.0); Mean Platelet Volume 9.2 fL (7.4-10.4); Nucleated Red Blood Cells % 0 % (-); Platelet Count 230 10^3/uL (130-400); Red Blood Cell Count 2.73 10^6/uL (4.70-6.10); Red Cell Dist. Width 17.9 % (11.5-14.5); White Blood Cell Count 11.6 10^3/uL (4.8-10.8)
[2024-04-07 11:15] LABS: ALT (SGPT) 59 U/L (0-50); AST (SGOT) 40 U/L (17-59); Albumin 3.9 g/dl (3.5-5.0); Alkaline Phosphatase 121 U/L (38-126); Blood Urea Nitrogen 46 mg/dl (9-20); Calcium 9.5 mg/dl (8.4-10.2); Carbon Dioxide 27 mmol/L (22-30); Chloride 92 mmol/L (98-107); Glucose 186 mg/dl (70-99); Potassium 3.7 mmol/L (3.5-5.1); Sodium 131 mmol/L (135-145); Total Bilirubin 0.4 mg/dl (0.2-1.3); Total Protein 5.8 g/dl (6.3-8.2); eGFR 29.07
== END ==
LOC: OIDL 15:38
PROVIDERS: Internal Medicine Hematology & Oncology
DX: C18.7 Malignant neoplasm of sigmoid colon (principal)
CPT/HCPCS: 80053; 85025

== ENCOUNTER → 2024-05-14 15:54 | Outpatient (REF) | payer MEDICARE, SELFPAY ==
[2024-05-14 15:35] LABS: Hematocrit 30.8 % (39.0-52.0); Hemoglobin 10.5 g/dL (13.0-18.0); Mean Corp Hgb Conc. 34.1 g/dL (33.0-37.0); Mean Corpuscular Hgb 33.5 pg (27.0-31.0); Mean Corpuscular Volume 98.4 fL (80.0-94.0); Mean Platelet Volume 9.2 fL (7.4-10.4); Platelet Count 323 10^3/uL (130-400); Red Blood Cell Count 3.13 10^6/uL (4.70-6.10); White Blood Cell Count 13.1 10^3/uL (4.8-10.8)
[2024-05-14 15:49] LABS: ALT (SGPT) 17 U/L (0-50); AST (SGOT) 21 U/L (17-59); Albumin 3.9 g/dl (3.5-5.0); Alkaline Phosphatase 89 U/L (38-126); Blood Urea Nitrogen 30 mg/dl (9-20); Calcium 9.3 mg/dl (8.4-10.2); Carbon Dioxide 24 mmol/L (22-30); Chloride 104 mmol/L (98-107); Glucose 94 mg/dl (70-99); Sodium 136 mmol/L (135-145); Total Bilirubin 0.3 mg/dl (0.2-1.3); Total Protein 5.9 g/dl (6.3-8.2); eGFR 44.93
[2024-05-14 16:20] LABS: PSA, Total - Diagnostic 0.26 ng/ml (0.0-4.0)
[2024-05-14 16:32] LABS: % Basophils 0.5 % (0-2); % Eosinophils 5.2 % (0-6); % Immature Granulocytes 0.4 % (0-0.5); % Lymphocytes 26.8 % (20.5-51.1); % Monocytes 6.9 % (1.7-9.3); % Neutrophils 60.2 % (42.2-75.2); Absolute Basophils 0.1 10^3/uL (0-0.2); Absolute Eosinophils 0.7 10^3/uL (0-0.7); Absolute Immature Granulocytes 0.1 10^3/uL (0-0.05); Absolute Lymphocytes 3.5 10^3/uL (1.2-3.4); Absolute Monocytes 0.9 10^3/uL (0.1-0.6); Absolute Neutrophils 7.9 10^3/uL (1.4-6.5); Nucleated Red Blood Cells % 0 % (-)
== END ==
LOC: OIDL 15:54
PROVIDERS: ATTENDING PHYSICIAN Internal Medicine Hematology & Oncology
DX: C18.7 Malignant neoplasm of sigmoid colon (principal); Z85.46 Personal history of malignant neoplasm of prostate
CPT/HCPCS: 80053; 84153; 85025

== ENCOUNTER → 2024-07-28 09:40 | Outpatient (REF) | payer MEDICARE, SELFPAY | LOC: RAD 09:40 | PROVIDERS: ATTENDING PHYSICIAN Internal Medicine Hematology & Oncology; FAMILY PHYSICIAN Internal Medicine | DX: C79.51 Secondary malignant neoplasm of bone (principal); R91.1 Solitary pulmonary nodule; N17.9 Acute kidney failure, unspecified; Z85.46 Personal history of malignant neoplasm of prostate | CPT/HCPCS: 71260; 74177; Q9967 ==

== ENCOUNTER → 2024-08-06 15:59 | Outpatient (REF) | payer MEDICARE, SELFPAY ==
[2024-08-06 16:15] LABS: ALT (SGPT) 14 U/L (0-50); AST (SGOT) 19 U/L (17-59); Albumin 4.1 g/dl (3.5-5.0); Alkaline Phosphatase 145 U/L (38-126); Blood Urea Nitrogen 31 mg/dl (9-20); Calcium 9.2 mg/dl (8.4-10.2); Carbon Dioxide 23 mmol/L (22-30); Chloride 106 mmol/L (98-107); Glucose 106 mg/dl (70-99); Sodium 142 mmol/L (135-145); Total Bilirubin 0.6 mg/dl (0.2-1.3); Total Protein 6.6 g/dl (6.3-8.2); eGFR 41.78
[2024-08-06 16:47] LABS: % Basophils 0.3 % (0-2); % Eosinophils 1.4 % (0-6); % Immature Granulocytes 0.2 % (0-0.5); % Lymphocytes 24.7 % (20.5-51.1); % Monocytes 4.4 % (1.7-9.3); Absolute Eosinophils 0.2 10^3/uL (0-0.7); Absolute Monocytes 0.5 10^3/uL (0.1-0.6); Absolute Neutrophils 8.4 10^3/uL (1.4-6.5); Hematocrit 36.6 % (39.0-52.0); Hemoglobin 12.6 g/dL (13.0-18.0); Mean Corp Hgb Conc. 34.4 g/dL (33.0-37.0); Mean Corpuscular Volume 89.9 fL (80.0-94.0); Mean Platelet Volume 9.8 fL (7.4-10.4); Nucleated Red Blood Cells % 0 % (-); Platelet Count 264 10^3/uL (130-400); Red Blood Cell Count 4.07 10^6/uL (4.70-6.10); Red Cell Dist. Width 13.2 % (11.5-14.5); White Blood Cell Count 12.2 10^3/uL (4.8-10.8)
[2024-08-06 16:47] LABS: CEA 1.55 ng/ml; PSA, Total - Diagnostic 0.36 ng/ml (0.0-4.0)
== END ==
LOC: OIDL 15:59
PROVIDERS: ATTENDING PHYSICIAN Internal Medicine Hematology & Oncology
DX: Z85.46 Personal history of malignant neoplasm of prostate (principal)
CPT/HCPCS: 80053; 82378; 84153; 85025

== ENCOUNTER → 2024-10-29 16:02 | Outpatient (REF) | payer MEDICARE, SELFPAY ==
[2024-10-29 14:17] LABS: % Basophils 0.2 % (0-2); % Eosinophils 0.8 % (0-6); % Immature Granulocytes 0.7 % (0-0.5); % Lymphocytes 26.1 % (20.5-51.1); % Monocytes 4.6 % (1.7-9.3); % Neutrophils 67.6 % (42.2-75.2); Absolute Eosinophils 0.1 10^3/uL (0-0.7); Absolute Immature Granulocytes 0.1 10^3/uL (0-0.05); Absolute Lymphocytes 3.1 10^3/uL (1.2-3.4); Absolute Monocytes 0.5 10^3/uL (0.1-0.6); Hematocrit 38.2 % (39.0-52.0); Hemoglobin 12.3 g/dL (13.0-18.0); Mean Corp Hgb Conc. 32.2 g/dL (33.0-37.0); Mean Corpuscular Hgb 31.3 pg (27.0-31.0); Mean Corpuscular Volume 97.2 fL (80.0-94.0); Mean Platelet Volume 9.4 fL (7.4-10.4); Platelet Count 203 10^3/uL (130-400); Red Blood Cell Count 3.93 10^6/uL (4.70-6.10); Red Cell Dist. Width 14.6 % (11.5-14.5); White Blood Cell Count 11.8 10^3/uL (4.8-10.8)
[2024-10-29 15:06] LABS: ALT (SGPT) 17 U/L (0-50); AST (SGOT) 20 U/L (17-59); Albumin 3.6 g/dl (3.5-5.0); Alkaline Phosphatase 105 U/L (38-126); Blood Urea Nitrogen 28 mg/dl (9-20); Calcium 8.7 mg/dl (8.4-10.2); Carbon Dioxide 21 mmol/L (22-30); Chloride 104 mmol/L (98-107); Glucose 97 mg/dl (70-99); Sodium 134 mmol/L (135-145); Total Bilirubin 0.5 mg/dl (0.2-1.3); Total Protein 5.9 g/dl (6.3-8.2); eGFR 44.93
[2024-10-29 15:34] LABS: CEA 1.98 ng/ml; PSA, Total - Diagnostic 0.45 ng/ml (0.0-4.0)
== END ==
LOC: OIDL 16:02
PROVIDERS: ATTENDING PHYSICIAN Internal Medicine Hematology & Oncology
DX: C18.7 Malignant neoplasm of sigmoid colon (principal); C61 Malignant neoplasm of prostate
CPT/HCPCS: 80053; 82378; 84153; 85025

== ENCOUNTER → 2024-11-03 09:52 | Outpatient (REF) | payer MEDICARE, SELFPAY | LOC: RAD 09:52 | PROVIDERS: ATTENDING PHYSICIAN Internal Medicine Hematology & Oncology; FAMILY PHYSICIAN Internal Medicine | DX: C18.7 Malignant neoplasm of sigmoid colon (principal); R91.1 Solitary pulmonary nodule; N17.9 Acute kidney failure, unspecified; C79.51 Secondary malignant neoplasm of bone; C61 Malignant neoplasm of prostate; Z85.46 Personal history of malignant neoplasm of prostate | CPT/HCPCS: 71260; 74177; Q9967 ==

== ENCOUNTER → 2025-01-21 15:25 | Outpatient (REF) | payer MEDICARE, SELFPAY ==
[2025-01-21 16:21] LABS: Hematocrit 39.9 % (39.0-52.0); Hemoglobin 13.4 g/dL (13.0-18.0); Mean Corp Hgb Conc. 33.6 g/dL (33.0-37.0); Mean Corpuscular Hgb 32.8 pg (27.0-31.0); Mean Corpuscular Volume 97.8 fL (80.0-94.0); Mean Platelet Volume 9.3 fL (7.4-10.4); Platelet Count 223 10^3/uL (130-400); Red Blood Cell Count 4.08 10^6/uL (4.70-6.10); Red Cell Dist. Width 13.4 % (11.5-14.5); White Blood Cell Count 13.4 10^3/uL (4.8-10.8)
[2025-01-21 16:22] LABS: ALT (SGPT) 23 U/L (0-50); AST (SGOT) 23 U/L (17-59); Albumin 3.9 g/dl (3.5-5.0); Alkaline Phosphatase 134 U/L (38-126); Blood Urea Nitrogen 30 mg/dl (9-20); Calcium 9.3 mg/dl (8.4-10.2); Carbon Dioxide 23 mmol/L (22-30); Chloride 109 mmol/L (98-107); Glucose 161 mg/dl (70-99); Potassium 4.4 mmol/L (3.5-5.1); Sodium 140 mmol/L (135-145); Total Bilirubin 0.4 mg/dl (0.2-1.3); Total Protein 6.2 g/dl (6.3-8.2); eGFR 41.78
[2025-01-21 16:32] LABS: CEA 3.37 ng/ml; PSA, Total - Diagnostic 0.39 ng/ml (0.0-4.0)
[2025-01-22 08:30] LABS: % Basophils 0.4 % (0-2); % Eosinophils 0.8 % (0-6); % Immature Granulocytes 0.7 % (0-0.5); % Lymphocytes 26.2 % (20.5-51.1); % Monocytes 4.9 % (1.7-9.3)
[2025-01-22 08:31] LABS: Absolute Basophils 0.1 10^3/uL (0-0.2); Absolute Eosinophils 0.1 10^3/uL (0-0.7); Absolute Immature Granulocytes 0.1 10^3/uL (0-0.05); Absolute Lymphocytes 3.5 10^3/uL (1.2-3.4); Absolute Monocytes 0.7 10^3/uL (0.1-0.6); Nucleated Red Blood Cells % 0 % (-)
== END ==
LOC: OIDL 15:25
PROVIDERS: ATTENDING PHYSICIAN Internal Medicine Hematology & Oncology
DX: C18.7 Malignant neoplasm of sigmoid colon (principal); R91.1 Solitary pulmonary nodule; N17.9 Acute kidney failure, unspecified; C79.51 Secondary malignant neoplasm of bone; C61 Malignant neoplasm of prostate; Z85.46 Personal history of malignant neoplasm of prostate
CPT/HCPCS: 80053; 82378; 84153; 85025

== ENCOUNTER → 2025-01-30 10:20 | Outpatient (REF) | payer MEDICARE, SELFPAY | LOC: RAD 10:20 | PROVIDERS: ATTENDING PHYSICIAN Specialist; FAMILY PHYSICIAN Internal Medicine | DX: N20.0 Calculus of kidney (principal) | CPT/HCPCS: 74018 ==

== ENCOUNTER → 2025-02-02 06:49 | Outpatient (REF) | payer MEDICARE, SELFPAY | LOC: RAD 06:49 | PROVIDERS: ATTENDING PHYSICIAN Internal Medicine Hematology & Oncology; FAMILY PHYSICIAN Internal Medicine | DX: R91.1 Solitary pulmonary nodule (principal); N17.9 Acute kidney failure, unspecified; C61 Malignant neoplasm of prostate; Z85.40 Personal history of malignant neoplasm of unspecified female genital organ | CPT/HCPCS: 71260; 74177; Q9967 ==

== ENCOUNTER → 2025-03-25 11:52 | Outpatient (REF) | payer MEDICARE, SELFPAY | LOC: SDSPAT 11:52 | PROVIDERS: ATTENDING PHYSICIAN Specialist; FAMILY PHYSICIAN Internal Medicine | DX: N20.0 Calculus of kidney (principal) | CPT/HCPCS: 36415; 93005 ==

== ENCOUNTER 2025-04-09 06:08 | Day surgery (SDC) | payer MEDICARE, SELFPAY ==
[2025-03-25 12:03] VITALS: BMI 26.2
--- NOTE | 2025-03-26 14:07 | PTCARENOTE ---
Abnormal EKG on 03/25/25. Dr. Cheek aware. No intervention needed.
[2025-04-09] VITALS (8 sets, daily range): BP systolic 116–149; BP diastolic 60–77; BMI 26.2
== END 2025-04-09 10:10 | disposition home or self-care (01) ==
LOC: SDS 06:08
PROVIDERS: ATTENDING PHYSICIAN Specialist
DX: N20.2 Calculus of kidney with calculus of ureter (principal); N21.0 Calculus in bladder; C18.9 Malignant neoplasm of colon, unspecified; Z92.21 Personal history of antineoplastic chemotherapy
CPT/HCPCS: 50590; 52332; 82365; C2617

== ENCOUNTER → 2025-04-15 16:33 | Outpatient (REF) | payer MEDICARE, SELFPAY ==
[2025-04-15 16:12] LABS: ALT (SGPT) 17 U/L (0-50); AST (SGOT) 20 U/L (17-59); Albumin 3.6 g/dl (3.5-5.0); Alkaline Phosphatase 165 U/L (38-126); Blood Urea Nitrogen 24 mg/dl (9-20); Calcium 8.7 mg/dl (8.4-10.2); Carbon Dioxide 21 mmol/L (22-30); Chloride 108 mmol/L (98-107); Glucose 120 mg/dl (70-99); Potassium 4.2 mmol/L (3.5-5.1); Sodium 134 mmol/L (135-145); Total Protein 6.2 g/dl (6.3-8.2); eGFR 41.52
[2025-04-15 16:18] LABS: Hematocrit 37.8 % (39.0-52.0); Hemoglobin 12.6 g/dL (13.0-18.0); Mean Corp Hgb Conc. 33.3 g/dL (33.0-37.0); Mean Corpuscular Volume 94.3 fL (80.0-94.0); Nucleated Red Blood Cells % 0 % (-); Platelet Count 277 10^3/uL (130-400); Red Cell Dist. Width 12.4 % (11.5-14.5)
[2025-04-15 16:43] LABS: CEA 5.83 ng/ml; PSA, Total - Diagnostic 0.25 ng/ml (0.0-4.0)
== END ==
LOC: OIDL 16:33
PROVIDERS: ATTENDING PHYSICIAN Internal Medicine Hematology & Oncology
DX: C18.7 Malignant neoplasm of sigmoid colon (principal); R91.1 Solitary pulmonary nodule; N17.9 Acute kidney failure, unspecified; C79.51 Secondary malignant neoplasm of bone; C61 Malignant neoplasm of prostate; Z85.46 Personal history of malignant neoplasm of prostate
CPT/HCPCS: 80053; 82378; 84153; 85025

== ENCOUNTER 2025-05-06 11:09 | Emergency (ER) | payer MEDICARE, SELFPAY ==
[2025-05-06 11:13] VITALS: BP 140/77
--- NOTE | 2025-05-06 14:23 | ED.GENMED ---
History of Present Illness
General
Chief Complaint: Extremity Pain (non-traumatic)
Source: patient
Exam Limitations: none
Time Seen by Provider: 05/06/25 14:20
Nursing documentation reviewed up to this point in time: agreed with
History of Present Illness
History of Present Illness:
Patient is a 75-year-old male past medical history of colon cancer with colostomy, recent procedure for kidney stone removal, stent several weeks ago history of prostate cancer, anxiety presents to the ER complaining of pain to the left posterior
thigh. This started 4 to 5 days ago. He denies any injury. Pain is intermittent. He currently denies pain. He has been sitting around for the past couple days and wanted to be sure that it was not a blood clot. He is currently on prednisone 5
mg a day to take with his Abiraterone (chemotherapy for prostate cancer).
He denies any fever or chills. He denies any swelling. Denies any actual back pain. He denies any paresthesias .he denies any leg weakness.
Past History
Past History
ED Past Medical History: Other (glaucoma)
Social History
Tobacco: Non-smoker
Alcohol: None
Drug: None
Personal: Single
Living: other (so)
Phy Exam
General Physical Exam
General Presentation: no apparent distress
General age: appears stated age
General Skin: warm and dry
General Habitus: normal
General Mental: alert
General Hydration: appears well hydrated
Neurological Exam
Neurological Exam: alert, oriented x3 and other (Intact sensation to bilateral lower extremities normal dorsiflexion plantarflexion)
Musculoskeletal Exam
Musculoskeletal Exam: other (Normal inspection to left lower extremity with strong pulses normal sensation no obvious swelling no erythema full range of motion to hip no bony back tenderness)
Skin Exam
Skin Exam: normal color and warm/dry
Psychiatric Exam
Psychiatric Exam: normal mood/affect
Course
Orders/Labs/Results
Orders:
Orders
05/06/25 14:36
Venous Doppler Lwr Ext Left [US Periph Venous LOWER Ext LT] Urgent
Comment:
Reason For Exam: pain left thigh
05/06/25 16:04
Dexamethasone Pf [Decadron] 10 mg PO NOW STA
Vital Signs
Initial and Last Documented VS:
Initial Vital Signs
Temp Pulse Resp BP Pulse Ox
97.6 F 111 20 140/77 95
05/06/25 11:13 05/06/25 11:13 05/06/25 11:13 05/06/25 11:13 05/06/25 11:13
Last Documented Vital Signs
Temp Pulse Resp BP Pulse Ox
97.6 F 111 20 140/77 95
05/06/25 11:13 05/06/25 11:13 05/06/25 11:13 05/06/25 11:13 05/06/25 14:40
MDM/Problems Addressed
Differential Diagnosis Includes:
Not limited to radiculopathy, sciatica less likely DVT
MDM/Problems Addressed:
Symptoms are consistent with most likely sciatica. Patient is well-appearing in no acute distress no obvious swelling no erythema or recent fever chills, no evidence of infection on exam. Patient is very toxic. No back pain no paresthesia or
bowel or bladder incontinence normal neurologic exam. Patient reports off-and-on intermittent sharp pains in his left thigh worse when sitting on that side. Will treat for sciatica, ultrasound negative. Will give 1 dose of Decadron here. Patient
is on prednisone 5 mg at home .will have patient increase to 40 mg for the next 4 days and then go back to his 5 mg with close outpatient f/u by pcp.
Chronic conditions affecting care:
on prednisone meds w/ hormone therapy for hx of cancer (bladder)
*Pulse Oximetry
SaO2: 95
Oxygen Mode of Delivery: Room air
Patient hypoxic: no
*Critical Care Note
Total Time (30-74mins, 75-104mins- exclusive of procedures): Not Applicable
ED Attending Note
-
Portions of this chart may have been created with voice recognition software.� Occasional wrong word or��sound alike� substitutions may have occurred due to the inherent limitations of voice recognition software.
Discharge Plan
Departure
Patient Disposition: Home (Routine Discharge)
Date of Disposition: 05/06/25
Time of Disposition: 16:08
Patient with high blood pressure during this ER visit?: Yes
Condition: Fair
Covid-19: Not Applicable
Discharge Problem:
Sciatica
Instructions: Sciatica - ED discharge instructions, BLOOD PRESSURE
Prescriptions:
New
prednisone 20 mg tablet
40 mg PO DAILY Qty: 8 0RF
No Action
latanoprost 0.005 % Drops
1 drp OPHTHALMIC (EYE) QPM
prednisone 5 mg Tablet
5 mg PO DAILY
timolol maleate 0.5 % Drops
1 drp OPHTHALMIC (EYE) DAILY
abiraterone 500 mg Tablet
500 mg PO DAILY
Referrals:
Lucas Hobson MD [Family Provider, Internal Medicine]
Activity Restrictions/Additional Instructions:
This is likely sciatica, radiculopathy, your ultrasound was negative for blood clot. As discussed you were given 1 dose of steroids here in the ER. Start 40 mg of prednisone starting tomorrow for the next 4 days and then you may go back to your
previous 5 mg dose. Follow-up with your family doctor in the next several days. Return if any worsening of symptoms.
Interventions
Interventions:
*Risk Screen - Suicide Last Done: 05/06/25 11:13
*General Assessment Last Done: 05/06/25 11:13
ED-Musculoskeletal Assessment Last Done: 05/06/25 11:51
ED-Skin Assessment Last Done: 05/06/25 11:51
Discharge Date and Time
Print Language: COLOMBIAN
[2025-05-06 16:15] VITALS: BP 150/72
[2025-05-06] MEDS: DECADRON 10 MG PO (16:20)
== END 2025-05-06 17:08 | disposition home or self-care (01) ==
LOC: EMR 11:09
PROVIDERS: EMERGENCY PHYSICIAN Emergency Medicine; FAMILY PHYSICIAN Internal Medicine
DX: M54.32 Sciatica, left side (principal); C61 Malignant neoplasm of prostate; Z85.038 Personal history of other malignant neoplasm of large intestine; Z85.51 Personal history of malignant neoplasm of bladder; Z93.3 Colostomy status; Z79.890 Hormone replacement therapy; Z79.52 Long term (current) use of systemic steroids
CPT/HCPCS: 99284; 93971

== ENCOUNTER → 2025-07-29 11:01 | Outpatient (REF) | payer MEDICARE, SELFPAY ==
[2025-07-29 11:09] LABS: Glucose 117 mg/dl (70-99)
== END ==
LOC: PET 11:01
PROVIDERS: ATTENDING PHYSICIAN Internal Medicine Hematology & Oncology
DX: C18.7 Malignant neoplasm of sigmoid colon (principal); C61 Malignant neoplasm of prostate
CPT/HCPCS: 36415; 82947